=== PATIENT | female | born 1955 | race Caucasian/White ===

== ENCOUNTER → 2018-12-18 | Outpatient (CLI) | payer OTHER | LOC: YHH 14:00 ==

== ENCOUNTER 2019-03-17 09:27 | Inpatient (IN) | payer OTHER ==
[2019-03-17] MEDS ORDERED: methylPREDNISolone NA SUCC 125 MG/2 ML VIAL IVPUSH ONE (09:37)
[2019-03-17 09:41] VITALS: BMI 33.6
--- NOTE | 2019-03-17 09:50 | PDOC ---
History of Present Illness - General Chief Complaint: Allergic Reaction Stated Complaint: ALLERGIC RX Time Seen by Provider: 03/17/19 09:31 History Source: Patient Exam Limitations: No Limitations - History of Present Illness Initial Comments: 03/17/19 09:49 Bess Farias is a Malaysian-speaking 63F with PMH HIV, IDDM, alcohol and opiate use disorder sent from detox for facial swelling and stridor consistent with anaphylactic reaction. Per EMS, patient going into alcohol detox 2/2 large alcohol consumption yesterday, but today began having SOB with stridor/wheezing and facial swelling and rash on face and chest. Initial O2sat 90% on RA. Sent by detox to ED. EMS gave 0.3mg IV epi, IV Benadryl, 2x Combivent and wheezing has improved. Patient denies any history of allergies, denies new exposures to food, animals, or products. Facial swelling has occurred twice before, but patient is unable to recall when or to what this has happened with. Currently says she feels more normal now, but that her voice is different and has some trouble breathing still. Denies BARRAZA, N/V, chest pain, C/D, urinary symptoms, or abdominal pain. Past History - Past Medical History Allergies/Adverse Reactions: Allergies Allergy/AdvReac Type Severity Reaction Status Date / Time No Known Allergies Allergy Verified 03/17/19 09:32 Home Medications: Ambulatory Orders Famotidine [Pepcid -] 20 mg PO DAILY PRN #30 tablet 11/07/18 Albuterol 0.083% Nebulizer Mary [Ventolin 0.083% Nebulizer Soln -] 1 neb NEB Q6H PRN #120 vial 01/24/19 Albuterol Sulfate Inhaler - [Ventolin HFA Inhaler -] 1 - 2 inh PO Q6H PRN #1 inh 01/24/19 Aspirin [Aspirin EC] 81 mg PO DAILY #30 tablet. 01/24/19 Atorvastatin Ca [Lipitor] 10 mg PO HS #30 tablet 01/24/19 Bictegrav/Emtricit/Tenofov Ala [Biktarvy 50-200-25 mg Tablet] 1 each PO DAILY # 30 tablet 01/24/19 Fluticasone/Salmeterol [Advair 250-50 Diskus] 1 each IH BID #1 disk.w.dev Lisinopril [Zestril] 2.5 mg PO DAILY #30 tablet 01/24/19 Loratadine 10 mg PO DAILY #30 tablet 01/24/19 Multivitamin [Poly-Vitamin] 1 each PO DAILY #30 tab.chew 01/24/19 Sodium Chloride [Saline Nasal [place]] 1 - 2 sprays NS PRN #1 spray 01/24/19 Valacyclovir HCl [Valtrex -] 500 mg PO DAILY #30 tablet 01/24/19 Vitamin B Complex [B Complex] 1 each PO DAILY #30 tablet 01/24/19 metFORMIN HCL [Glucophage -] 500 mg PO BID #60 tablet 01/24/19 Nicotine Polacrilex [Nicotine Lozenge] 2 mg BC QID PRN #1 box 01/29/19 Terbinafine HCl [Lamisil At] 1 applic TP BID #30 cream..g. 01/29/19 Aripiprazole 15 mg PO AM #30 tablet 02/26/19 Benztropine Mesylate [Cogentin -] 1 mg PO DAILY #30 tablet 02/26/19 Mirtazapine 1 tablet PO HS 30 Days #30 tablet 02/26/19 Mirtazapine [Remeron -] 15 mg PO HS #30 tablet 02/26/19 Perphenazine [Trilafon -] 4 mg PO HS #30 tablet 02/26/19 Sertraline HCl 25 mg PO AM #30 tablet 02/26/19 Sertraline HCl 100 mg PO AM #30 tablet 02/26/19 Zolpidem Tartrate [Ambien] 10 mg PO HS #15 tablet MDD 1 02/26/19 Guaifenesin [Robitussin] 10 ml PO Q6H PRN #1 bottle MDD 4 03/07/19 Anemia: No Asthma: Yes Cancer: No Cardiac Disorders: No CVA: No COPD: Yes CHF: No Dementia: No Diabetes: Yes GI Disorders: No Disorders: No HTN: No Hypercholesterolemia: Yes Liver Disease: No Psychiatric Problems: Yes (Hx of treatment for major depressio, heroin abuse in remission.) Seizures: No Thyroid Disease: No - Surgical History Abdominal Surgery: No Appendectomy: No Cardiac Surgery: No Cholecystectomy: No Lung Surgery: No Neurologic Surgery: No Orthopedic Surgery: No - Immunization History Immunization Up to Date: (unknown) - Psycho Social/Smoking Cessation Hx Smoking History: Never smoked Have you smoked in the past 12 months: Yes Number of Cigarettes Smoked Daily: 10 Cigars Per Day: 0 Hx Alcohol Use: Yes Drug/Substance Use Hx: Yes Substance Use Type: Alcohol Hx Substance Use Treatment: Yes Review of Systems - Review of Systems Constitutional: No: Chills, Fever HEENTM: Yes: Throat Swelling, Mouth Swelling. No: Dental Problems, Difficulty Swallowing Respiratory: Yes: Stridor, Wheezing. No: Cough Cardiac (ROS): No: Symptoms Reported ABD/GI: No: Constipated, Diarrhea, Difficulty Swallowing, Nausea, Poor Appetite , Poor Fluid Intake, Vomiting : No: Symptoms Reported Musculoskeletal: No: Symptoms Reported Integumentary: Yes: Flushing, Rash (chest and face) Neurological: No: Symptoms reported Endocrine: No: Symptoms Reported Hematologic/Lymphatic: No: Symptoms Reported All Other Systems: Reviewed and Negative *Physical Exam - Vital Signs Last Vital Signs Temp Pulse Resp BP Pulse Ox 99.3 F 114 H 20 136/85 95 03/17/19 09:39 03/17/19 09:39 03/17/19 09:39 03/17/19 09:39 03/17/19 09:39 - Physical Exam General Appearance: Yes: Nourished, Appropriately Dressed, Mild Distress, Obese HEENT: positive: EOMI, ROBERT, Symmetrical, Hearing Grossly Normal, Other ( significant soft tissue swelling with erythema to face and neck, L > R, no creptitus). negative: Normal Voice, Pharynx Normal (Mallampati IV), Scleral Icterus (R), Scleral Icterus (L), Pharyngeal Erythema, Tonsillar Exudate, Tonsillar Erythema Neck: positive: Trachea midline, Normal Thyroid, Supple, Other (L > R soft tissue swelling). negative: Tender, Decreased range of motion, Lymphadenopathy (R), Lymphadenopathy (L), Thyromegaly Respiratory/Chest: positive: Stridor, Wheezing. negative: Chest Tender, Respiratory Distress, Accessory Muscle Use, Labored Respiration, Decreased Breath Sounds, Crackles, Rales, Rhonchi Cardiovascular: positive: Regular Rhythm, Tachycardia. negative: Murmur Gastrointestinal/Abdominal: positive: Normal Bowel Sounds, Soft, Protuberent. negative: Tender, Organomegaly, Pulsatile Mass, Guarding, Rebound Musculoskeletal: positive: Normal Inspection. negative: CVA Tenderness Extremity: positive: Normal Capillary Refill, Normal Inspection, Normal Range of Motion, Pelvis Stable. negative: Tender, Cyanosis, Erythema Integumentary: positive: Normal Color, Dry, Warm Neurologic: positive: Fully Oriented, Alert, Normal Mood/Affect, Normal Response. negative: Motor Strength 08/18 ED Treatment Course - LABORATORY CBC & Chemistry Diagram: 03/18/19 07:52 03/18/19 07:52 Medical Decision Making - Medical Decision Making 03/17/19 09:49 Bess Farias is a Malaysian-speaking 63F with PMH HIV, IDDM, alcohol and opiate use disorder sent from detox for facial swelling and stridor consistent with anaphylactic reaction. EMS already given epi, Duonebs, Benadryl. Ordering 125mg Solu-Medrol for presumed allergic reaction. Will continue to monitor swelling for improvement. Has good bilateral air flow with mild wheezing, no stridor noted. Ordering CBC, CMP, troponin, and CXR to further characterize etiology of facial swelling given unknown etiology. Ddx includes angioedema 2/2 mediation, Fco angina, SVC syndrome, dental infection. 03/17/19 10:57 ECG shows sinus tachycardia, HR 114, QRS 78, QTc 501, no evidence of TWI or ischemic changes. Labs notable for: - CBC WNL - CMP WNL Patient re-evaluated, neck and face still swollen but not any worse, says she is hungry. Given HIV+ and IDDM, concern for neck infection/cellulitis. Ordering CT neck/soft tissue with IV contrast to evaluate for this. Ordering 600mg IV clindamycin for presumed soft tissue infection. 03/17/19 14:55 CT shows no evidence of abscess or soft tissue infection, airway clear, but has enlarged lymph nodes especially in jugular chain. CXR shows prominent mediastinum but no sign of PTX or infiltrate. Patient is ambulatory and would like to go home, speaking without issue. Still has rash and facial swelling 4 hours after steroids, but is stable at this time , satting well on RA. However, patient has no idea what caused the reaction to begin with, likely has poor follow-up, and is a poor historian. Recommend keeping patient under observation overnight for further steroids until symptoms resolve. Discussed case with nina Keen for admission to her service to Med-Surg. Discharge - Discharge Information Problems reviewed: Yes Clinical Impression/Diagnosis: Facial swelling Allergic reaction Qualifiers: Encounter type: initial encounter Qualified Code(s): T78.40XA - Allergy, unspecified, initial encounter - Follow up/Referral - Patient Discharge Instructions - Post Discharge Activity
[2019-03-17] MEDS ORDERED: methylPREDNISolone NA SUCC 125 MG/2 ML VIAL ONE (09:57)
[2019-03-17 10:36] LABS: BASO % 0.9 % (0-2.0); EOS % 0.3 % (0-4.5); HEMATOCRIT 39.2 % (32.4-45.2); HEMOGLOBIN 12.5 GM/dL (10.7-15.3); LYMPH % 61.7 % (8-40); MCH 28.6 pg (25.7-33.7); MEAN CELL VOLUME 89.4 fl (80-96); MEAN PLT VOLUME 8.7 fl (7.5-11.1); MONO % 6.3 % (3.8-10.2); NEUT % 30.8 % (42.8-82.8); PLATELET COUNT 91 K/MM3 (134-434); RBC 4.38 M/mm3 (3.60-5.2); RDW 17.2 % (11.6-15.6); WHITE BLOOD COUNT 6.7 K/mm3 (4.0-10.0)
[2019-03-17] MEDS ORDERED: FAMOTIDINE 20 MG/50 ML IVPB 20 MG/50 ML MG IVPB ONE ×2 (10:56→11:29)
--- NOTE | 2019-03-17 10:58 | EKG ---
Test Reason : Blood Pressure : / mmHG Vent. Rate : 114 BPM Atrial Rate : 114 BPM P-R Int : 132 ms QRS Dur : 078 ms QT Int : 364 ms P-R-T Axes : 066 072 056 degrees QTc Int : 501 ms SINUS TACHYCARDIA OTHERWISE NORMAL ECG WHEN COMPARED WITH ECG OF 03-JAN-2018 10:18, NO SIGNIFICANT CHANGE WAS FOUND Confirmed by BRIEN MG MD ([id number]) on 03/17/2019 10:58:26 AM Referred By: Confirmed By:BRIEN MG MD
[2019-03-17] MEDS ORDERED: CLINDAMYCIN 600MG PREMIX IVPB 600 MG/50 ML BAG IVPB ONE ×2 (11:34→11:42)
[2019-03-17 12:19] LABS: ALBUMIN 3.5 g/dl (3.4-5.0); BILIRUBIN,TOTAL 0.3 mg/dL (0.2-1); BLOOD UREA NITROGEN 9.9 mg/dL (7-18); CREATININE 0.6 mg/dL (0.55-1.3); POTASSIUM 3.6 mmol/L (3.5-5.1)
[2019-03-17 14:53] LABS: ANISOCYTOSIS 1+; MACROCYTOSIS 1+; PLATELET ESTIMATE DECREASED; TARGET CELLS 1+
--- NOTE | 2019-03-17 14:57 | PDOC ---
Documentation entered by Bharat Terry SCRIBE, acting as scribe for Khanh Jimenez MD. Khanh Jimenez MD: This documentation has been prepared by the [facility] read Xhesika, SCRIBE, under my direction and personally reviewed by me in its entirety. I confirm that the documentation accurately reflects all work, treatment, procedures, and medical decision making performed by me. Attending Attestation - Resident Resident Name: AbdullahiparrishMorris - ED Attending Attestation I have performed the following: I have examined & evaluated the patient, The case was reviewed & discussed with the resident, I agree w/resident's findings & plan, Exceptions are as noted - HPI HPI: 03/17/19 11:10 The patient is a 63 year old female with a PMH of asthma, COPD, depression, HIV , IDDM, alcohol and opiate use disorder who presents to the ED for an allergic rxn. Pt notes she went to the methadone clinic this morning due to large alcohol consumption yesterday. While she was at the clinic, patient was having SOB, L eye, tongue and facial swelling. Pt did not receive her methadone. En route to the ED patient received IM epinephrine, IV benadryl, and Combivent x2 by EMS, with improvement of symptoms. Patient denies any history of allergies, or new exposures to food, animals, or products. The patient denies chest pain, headache and dizziness. Denies fever, chills, cough, nausea, vomiting, diarrhea and constipation. Allergies:, NKDA Social Hx: Denies current smoking, drinking, or other substance usage. - Physicial Exam PE: 03/17/19 11:42 Vitals: Triage Vital signs reviewed General Appearance: no acute distress, well nourished well developed, Face: +diffuse facial swelling Throat: + tongue swelling Cardiac: Regular rate and rhythm, no murmurs, no rubs, no gallops, Lungs: Clear to auscultation bilateral, good air movement bilaterally. No strider Skin: Warm and dry, no rashes or lesions, no petechiae Psych: normal mood, normal affect - Medical Decision Making 03/17/19 14:57 63 years old HIV diabetes with facial swelling hoarse voice some tongue swelling received steroids epinephrine in the field Pepcid and Benadryl CT demonstrates lymph node adenopathy but no acute evidence of infection Given risk factors will observe overnight for continued steroids monitoring and further management.
[2019-03-17] MEDS ORDERED: ACETAMINOPHEN 1000 MG/100 ML VIAL (NON FORMULARY) IVPB PRN (18:41)
--- NOTE | 2019-03-17 18:44 | HP ---
Admitting History and Physical - Primary Care Physician PCP: Marysol Du - Admission History of Present Illness: 63 year old female with a PMH of asthma, COPD, depression, HIV, IDDM, alcohol and opiate use disorder who presents to the ED for an allergic rxn. Pt notes she went to the methadone clinic this morning due to large alcohol consumption yesterday. While she was at the clinic, patient was having SOB, L eye, tongue and facial swelling. Pt did not receive her methadone. En route to the ED patient received IM epinephrine, IV benadryl, and Combivent x2 by EMS, with improvement of symptoms. Patient denies any history of allergies, or new exposures to food, animals, or products. - Past Medical History Pulmonary: Yes: Asthma, COPD Infectious Disease: Yes: HIV Endocrine: Yes: Diabetes Mellitus - Smoking History Smoking history: Never smoked Have you smoked in the past 12 months: Yes Aproximately how many cigarettes per day: 10 - Alcohol/Substance Use Hx Alcohol Use: Yes Home Medications - Allergies Allergies/Adverse Reactions: Allergies Allergy/AdvReac Type Severity Reaction Status Date / Time No Known Allergies Allergy Verified 03/17/19 09:32 - Home Medications Home Medications: Ambulatory Orders Famotidine [Pepcid -] 20 mg PO DAILY PRN #30 tablet 11/07/18 Albuterol 0.083% Nebulizer Mary [Ventolin 0.083% Nebulizer Soln -] 1 neb NEB Q6H PRN #120 vial 01/24/19 Albuterol Sulfate Inhaler - [Ventolin HFA Inhaler -] 1 - 2 inh PO Q6H PRN #1 inh 01/24/19 Aspirin [Aspirin EC] 81 mg PO DAILY #30 tablet.dr 01/24/19 Atorvastatin Ca [Lipitor] 10 mg PO HS #30 tablet 01/24/19 Bictegrav/Emtricit/Tenofov Ala [Biktarvy 50-200-25 mg Tablet] 1 each PO DAILY # 30 tablet 01/24/19 Fluticasone/Salmeterol [Advair 250-50 Diskus] 1 each IH BID #1 disk.w.dev Loratadine 10 mg PO DAILY #30 tablet 01/24/19 Multivitamin [Poly-Vitamin] 1 each PO DAILY #30 tab.chew 01/24/19 Sodium Chloride [Saline Nasal [place]] 1 - 2 sprays NS PRN #1 spray 01/24/19 Valacyclovir HCl [Valtrex -] 500 mg PO DAILY #30 tablet 01/24/19 Vitamin B Complex [B Complex] 1 each PO DAILY #30 tablet 01/24/19 metFORMIN HCL [Glucophage -] 500 mg PO BID #60 tablet 01/24/19 Nicotine Polacrilex [Nicotine Lozenge] 2 mg BC QID PRN #1 box 01/29/19 Terbinafine HCl [Lamisil At] 1 applic TP BID #30 cream..g. 01/29/19 Aripiprazole 15 mg PO AM #30 tablet 02/26/19 Benztropine Mesylate [Cogentin -] 1 mg PO DAILY #30 tablet 02/26/19 Mirtazapine 1 tablet PO HS 30 Days #30 tablet 02/26/19 Mirtazapine [Remeron -] 15 mg PO HS #30 tablet 02/26/19 Perphenazine [Trilafon -] 4 mg PO HS #30 tablet 02/26/19 Sertraline HCl 25 mg PO AM #30 tablet 02/26/19 Sertraline HCl 100 mg PO AM #30 tablet 02/26/19 Zolpidem Tartrate [Ambien] 10 mg PO HS #15 tablet MDD 1 02/26/19 Guaifenesin [Robitussin -] 10 ml PO Q6H PRN #1 bottle MDD 4 03/07/19 Physical Examination Vital Signs: Vital Signs Temperature 98.6 F 03/17/19 17:06 Pulse Rate 105 H 03/17/19 17:06 Respiratory Rate 12 03/17/19 17:06 Blood Pressure 139/71 03/17/19 17:06 O2 Sat by Pulse Oximetry (%) 97 03/17/19 17:24 HENT: Yes: Other (no more swelling of face) Cardiovascular: Yes: Regular Rate and Rhythm Respiratory: Yes: CTA Bilaterally Gastrointestinal: Yes: Normal Bowel Sounds Extremities: Yes: WNL Neurological: Yes: Alert, Oriented Labs: CBC, BMP 03/17/19 10:15 03/17/19 11:26 Imaging - Results Cat Scan: Report Reviewed Problem List - Problems (1) Allergic reaction Assessment/Plan: iv solumedrol benadryl po full liquid diet Code(s): T78.40XA - ALLERGY, UNSPECIFIED, INITIAL ENCOUNTER Qualifiers: Encounter type: initial encounter Qualified Code(s): T78.40XA - Allergy, unspecified, initial encounter (2) Facial swelling Code(s): R22.0 - LOCALIZED SWELLING, MASS AND LUMP, HEAD (3) Human immunodeficiency virus (HIV) disease Code(s): B20 - HUMAN IMMUNODEFICIENCY VIRUS [HIV] DISEASE (4) Anxiety Code(s): F41.9 - ANXIETY DISORDER, UNSPECIFIED Assessment/Plan Laboratory Tests 03/17/19 03/17/19 03/17/19 10:15 10:15 11:26 WBC 6.7 RBC 4.38 Hgb 12.5 Hct 39.2 MCV 89.4 MCH 28.6 MCHC 32.0 RDW 17.2 H Plt Count 91 L D MPV 8.7 D Absolute Neuts (auto) 2.1 Neutrophils % 30.8 L D Neutrophils % (Manual) 30.0 L Band Neutrophils % 1.1 Lymphocytes % 61.7 H D Lymphocytes % (Manual) 40.0 Monocytes % 6.3 Monocytes % (Manual) 7 Eosinophils % 0.3 Eosinophils % (Manual) 0.0 D Basophils % 0.9 Basophils % (Manual) 0.0 Myelocytes % (Man) 0 Promyelocytes % (Man) 0 Blast Cells % (Manual) 0 Nucleated RBC % 0 Metamyelocytes 0 Hypochromia 0 Platelet Estimate Decreased Polychromasia 0 Poikilocytosis 1+ Anisocytosis 1+ Microcytosis 1+ Macrocytosis 1+ Spherocytes 1+ Target Cells 1+ Sodium Cancelled 142 Potassium Cancelled 3.6 Chloride Cancelled 106 Carbon Dioxide Cancelled 26 Anion Gap Cancelled 11 BUN Cancelled 9.9 Creatinine Cancelled 0.6 Est GFR (CKD-EPI)AfAm Cancelled 114.02 Est GFR (CKD-EPI)NonAf Cancelled 98.38 Random Glucose Cancelled 91 Calcium Cancelled 8.0 L Total Bilirubin Cancelled 0.3 AST Cancelled 101 H ALT Cancelled 39 Alkaline Phosphatase Cancelled 73 Troponin I Cancelled Total Protein Cancelled 8.0 Albumin Cancelled 3.5 03/17/19 11:26 WBC RBC Hgb Hct MCV MCH MCHC RDW Plt Count MPV Absolute Neuts (auto) Neutrophils % Neutrophils % (Manual) Band Neutrophils % Lymphocytes % Lymphocytes % (Manual) Monocytes % Monocytes % (Manual) Eosinophils % Eosinophils % (Manual) Basophils % Basophils % (Manual) Myelocytes % (Man) Promyelocytes % (Man) Blast Cells % (Manual) Nucleated RBC % Metamyelocytes Hypochromia Platelet Estimate Polychromasia Poikilocytosis Anisocytosis Microcytosis Macrocytosis Spherocytes Target Cells Sodium Potassium Chloride Carbon Dioxide Anion Gap BUN Creatinine Est GFR (CKD-EPI)AfAm Est GFR (CKD-EPI)NonAf Random Glucose Calcium Total Bilirubin AST ALT Alkaline Phosphatase Troponin I < 0.02 Total Protein Albumin Active Medications Generic Name Dose Route Start Last Admin Trade Name Freq PRN Reason Stop Dose Admin Acetaminophen 1,000 mg 03/17/19 18:41 Ofirmev Injection - IVPB Q6H PRN PAIN LEVEL 4 - 6 Diphenhydramine HCl 25 mg 03/17/19 18:45 Benadryl - PO Q6H ROSA Methylprednisolone Sodium Succinate 60 mg 03/18/19 10:00 Solu-Medrol - IVPUSH DAILY ROSA Mirtazapine 30 mg 03/17/19 22:00 Remeron - PO HS ROSA
[2019-03-17] MEDS: diphenhydrAMINE HCL 25 MG CAPSULE (FP) PO SCH (19:10)
[2019-03-17] MEDS ORDERED: ZOLPIDEM TARTRATE 5 MG TABLET PO PRN (21:14)
[2019-03-17] MEDS ORDERED: MIRTAZAPINE 30 MG TABLET (FP) PO SCH (22:00)
[2019-03-18] MEDS: diphenhydrAMINE HCL 25 MG CAPSULE (FP) PO SCH ×3 (00:18→12:29)
[2019-03-18] MEDS ORDERED: metFORMIN HCL 500 MG TABLET (FP) PO SCH (07:00)
[2019-03-18 09:00] LABS: BASO % 0.5 % (0-2.0); EOS % 0.2 % (0-4.5); HEMATOCRIT 41.7 % (32.4-45.2); HEMOGLOBIN 13.4 GM/dL (10.7-15.3); LYMPH % 39.3 % (8-40); MCH 28.5 pg (25.7-33.7); MCHC 32.2 g/dl (32.0-36.0); MEAN CELL VOLUME 88.7 fl (80-96); MEAN PLT VOLUME 9.7 fl (7.5-11.1); MONO % 12.2 % (3.8-10.2); NEUT % 47.8 % (42.8-82.8); RDW 17.3 % (11.6-15.6)
[2019-03-18 09:05] LABS: WHITE BLOOD COUNT 7.4 K/mm3 (4.0-10.0)
[2019-03-18 09:30] LABS: ALBUMIN 3.5 g/dl (3.4-5.0); BILIRUBIN,TOTAL 0.8 mg/dL (0.2-1); CREATININE 0.8 mg/dL (0.55-1.3); POTASSIUM 4.5 mmol/L (3.5-5.1); TOT PROT 8.6 g/dl (6.4-8.2)
[2019-03-18] MEDS ORDERED: methylPREDNISolone NA SUCC 40 MG/1 ML VIAL IVPUSH SCH (10:00)
[2019-03-18] MEDS ORDERED: METHADONE HCL 40 MG DISPERSABLE TABLET PO ONE (10:15)
[2019-03-18] MEDS ORDERED: amLODIPine BESYLATE 5 MG TABLET (FP) PO ONE (12:13)
--- NOTE | 2019-03-18 12:14 | DS ---
Physical Examination Vital Signs: Vital Signs Temperature 99 F 03/18/19 05:00 Pulse Rate 83 03/18/19 10:58 Respiratory Rate 20 03/18/19 10:58 Blood Pressure 140/94 03/18/19 10:58 O2 Sat by Pulse Oximetry (%) 97 03/17/19 21:00 Constitutional: Yes: No Distress HENT: Yes: Atraumatic Neck: Yes: Supple Cardiovascular: Yes: Regular Rate and Rhythm Respiratory: Yes: CTA Bilaterally Gastrointestinal: Yes: Normal Bowel Sounds Extremities: Yes: WNL Edema: No Neurological: Yes: Alert, Oriented Labs: CBC, BMP 03/18/19 07:52 03/18/19 07:52 Discharge Summary Problems reviewed: Yes Reason For Visit: SWELLING OF FACE Current Active Problems Allergic reaction (Acute) Facial swelling (Acute) Weakness (Acute) Human immunodeficiency virus (HIV) disease (Chronic) Condition: Critical - Instructions Diet, Activity, Other Instructions: HOLD LISINOPRIL..COULD BE THE CAUSE FOR FACIAL SWELLING SEE YOUR DOCTOR FOR BP MANAGEMENT SEE ALLERGY AND IMMUNOLOGY Referrals: Jackie Lynch [employer]CTOR [Primary Care Provider] - Disposition: HOME - Home Medications Comprehensive Discharge Medication List: Ambulatory Orders Famotidine [Pepcid -] 20 mg PO DAILY PRN #30 tablet 11/07/18 Albuterol 0.083% Nebulizer Mary [Ventolin 0.083% Nebulizer Soln -] 1 neb NEB Q6H PRN #120 vial 01/24/19 Albuterol Sulfate Inhaler - [Ventolin HFA Inhaler -] 1 - 2 inh PO Q6H PRN #1 inh 01/24/19 Aspirin [Aspirin EC] 81 mg PO DAILY #30 tablet.dr 01/24/19 Atorvastatin Ca [Lipitor] 10 mg PO HS #30 tablet 01/24/19 Bictegrav/Emtricit/Tenofov Ala [Biktarvy 50-200-25 mg Tablet] 1 each PO DAILY # 30 tablet 01/24/19 Fluticasone/Salmeterol [Advair 250-50 Diskus] 1 each IH BID #1 disk.w.dev Loratadine 10 mg PO DAILY #30 tablet 01/24/19 Multivitamin [Poly-Vitamin] 1 each PO DAILY #30 tab.chew 01/24/19 Sodium Chloride [Saline Nasal [place]] 1 - 2 sprays NS PRN #1 spray 01/24/19 Valacyclovir HCl [Valtrex -] 500 mg PO DAILY #30 tablet 01/24/19 Vitamin B Complex [B Complex] 1 each PO DAILY #30 tablet 01/24/19 metFORMIN HCL [Glucophage -] 500 mg PO BID #60 tablet 01/24/19 Nicotine Polacrilex [Nicotine Lozenge] 2 mg BC QID PRN #1 box 01/29/19 Terbinafine HCl [Lamisil At] 1 applic TP BID #30 cream..g. 01/29/19 Aripiprazole 15 mg PO AM #30 tablet 02/26/19 Benztropine Mesylate [Cogentin -] 1 mg PO DAILY #30 tablet 02/26/19 Mirtazapine 1 tablet PO HS 30 Days #30 tablet 02/26/19 Mirtazapine [Remeron -] 15 mg PO HS #30 tablet 02/26/19 Perphenazine [Trilafon -] 4 mg PO HS #30 tablet 02/26/19 Sertraline HCl 25 mg PO AM #30 tablet 02/26/19 Sertraline HCl 100 mg PO AM #30 tablet 02/26/19 Zolpidem Tartrate [Ambien] 10 mg PO HS #15 tablet MDD 1 02/26/19 Guaifenesin [Robitussin -] 10 ml PO Q6H PRN #1 bottle MDD 4 03/07/19 [facility]
[2019-03-18 12:55] LABS: PLATELET COUNT 58 K/MM3 (134-434)
[2019-03-18 14:21] VITALS: BP 153/92; PULSE 96; TEMP 99.1
== END 2019-03-18 15:22 | disposition home or self-care (01) | DRG 385 ==
LOC: JER 09:27 → JERBED 16:22 → J5S 17:40
PROVIDERS: ADMIT Internal Medicine; ATTEND Internal Medicine
DX: R22.0 Localized swelling, mass and lump, head (principal); Z21 Asymptomatic human immunodeficiency virus [HIV] infection status; F11.99 Opioid use, unspecified with unspecified opioid-induced disorder; R00.0 Tachycardia, unspecified; R21 Rash and other nonspecific skin eruption; R22.1 Localized swelling, mass and lump, neck; R06.2 Wheezing; E11.9 Type 2 diabetes mellitus without complications; R06.1 Stridor; J44.9 Chronic obstructive pulmonary disease, unspecified
CPT/HCPCS: 36415; 70491-TC; 71045-TC-FY; 80053; 82962; 84484; 85025; 93005; 93010; 99285-25; G0463-25; Q9967

== ENCOUNTER 2019-06-19 12:55 | Inpatient (IN) | payer OTHER ==
[2019-06-19 13:05] VITALS: BMI 33.8
--- NOTE | 2019-06-19 13:08 | PDOC ---
History of Present Illness - General Chief Complaint: Weakness Stated Complaint: LEG PAIN Time Seen by Provider: 06/19/19 13:06 History Source: Patient Exam Limitations: Clinical Condition, Intoxication - History of Present Illness Initial Comments: Bess Farias is a 63 yo F w a pmh of HIV last known CD4 - 438 on 05/05, IDDM, asthma, COPD, depression, alcohol and opiate use disorder on methadone presents to the [facility] er BIBEMS because she had a throbbing/pulasting pain in the right side of her neck associated with right foot pain. When EMS arrived at the patient's home she was noted to be saturating in the high 70's and low 80's however she perked up to high 80's low 90's on 5L NC. Here in the ER the patient does not provide much history. She states that she has mild right sided neck pain, her legs are in pain, and she overall feels lousy but does not provide specific symptoms. She endorses shortness of breath and a significant amount of difficulty lying flat. She also endorses a significant amount of new onset diffuse bilateral leg swelling. Denies abdominal pain, nausea, vomiting, headache, blurry vision, recent travel, fevers, or arm weakness. PCP: Jackie Lynch PSH: None reported Social Hx: Smokes 1 PPD. Abuses alcohol and opiates. Lives at home and is independent in her ADL. Allergies: Lisinopril. Past History - Past Medical History Allergies/Adverse Reactions: Allergies Allergy/AdvReac Type Severity Reaction Status Date / Time lisinopril Allergy Swelling Verified 06/19/19 13:01 Home Medications: Ambulatory Orders Albuterol Sulfate Inhaler - [Ventolin HFA Inhaler -] 1 - 2 inh PO Q6H PRN #1 inh 01/24/19 Aspirin [Aspirin EC] 81 mg PO DAILY #30 tablet.dr 01/24/19 Atorvastatin Ca [Lipitor] 10 mg PO HS #30 tablet 01/24/19 Fluticasone/Salmeterol [Advair 250-50 Diskus] 1 each IH BID #1 disk.w.dev 01/24/19 Loratadine 10 mg PO DAILY #30 tablet 01/24/19 Multivitamin [Poly-Vitamin] 1 each PO DAILY #30 tab.chew 01/24/19 Sodium Chloride [Saline Nasal [place]] 1 - 2 sprays NS PRN #1 spray 10/11/19 Vitamin B Complex [B Complex] 1 each PO DAILY #30 tablet 01/24/19 metFORMIN HCL [Glucophage -] 500 mg PO BID #60 tablet 01/24/19 Terbinafine HCl [Lamisil At] 1 applic TP BID #30 cream..g. 01/29/19 Blood Pressure Kit-Extra Large [Blood Pressure Monitor] 1 each ASDIR #1 kit 03/19/19 Nebulizer [Compact Compressor Nebulizer] 1 each ASDIR #1 kit 03/19/19 Amlodipine Besylate [Norvasc -] 1 tab PO DAILY #30 tablet 05/01/19 Aripiprazole 15 mg PO AM #30 tablet 05/07/19 Benztropine Mesylate [Cogentin -] 1 mg PO DAILY #30 tablet 05/07/19 Hydrochlorothiazide [Hctz -] 12.5 mg PO DAILY #30 cap 05/07/19 Mirtazapine 1 tablet PO HS 30 Days #30 tablet 05/07/19 Mirtazapine [Remeron -] 15 mg PO HS #30 tablet 05/07/19 Nicotine Polacrilex [Nicotine Gum] 2 mg ASDIR #1 box 05/07/19 Perphenazine [Trilafon -] 4 mg PO HS #30 tablet 05/07/19 Sertraline HCl 25 mg PO AM #30 tablet 05/07/19 Sertraline HCl 100 mg PO AM #30 tablet 05/07/19 Albuterol 0.083% Nebulizer Mary [Ventolin 0.083% Nebulizer Soln -] 1 neb NEB Q6H PRN #120 vial 05/27/19 Bictegrav/Emtricit/Tenofov Ala [Biktarvy 50-200-25 mg Tablet] 1 each PO DAILY #30 tablet 05/27/19 Famotidine [Pepcid -] 20 mg PO DAILY PRN #30 tablet 05/27/19 Valacyclovir HCl [Valtrex -] 500 mg PO DAILY #30 tablet 05/27/19 Zolpidem Tartrate [Ambien] 10 mg PO HS #15 tablet MDD 1 06/05/19 Anemia: No Asthma: Yes Cancer: No Cardiac Disorders: No CVA: No COPD: Yes CHF: No Dementia: No Diabetes: Yes GI Disorders: No Disorders: No HTN: No Hypercholesterolemia: Yes Liver Disease: No Psychiatric Problems: Yes (Hx of treatment for major depressio, heroin abuse in remission.) Seizures: No Thyroid Disease: No - Surgical History Abdominal Surgery: No Appendectomy: No Cardiac Surgery: No Cholecystectomy: No Lung Surgery: No Neurologic Surgery: No Orthopedic Surgery: No - Immunization History Immunization Up to Date: (unknown) - Psycho Social/Smoking Cessation Hx Smoking History: Current every day smoker Have you smoked in the past 12 months: Yes Number of Cigarettes Smoked Daily: 15 Cigars Per Day: 0 Information on smoking cessation initiated: No 'Breaking Loose' booklet given: 03/17/19 Hx Alcohol Use: Yes Drug/Substance Use Hx: Yes Substance Use Type: Alcohol Hx Substance Use Treatment: Yes Review of Systems - Review of Systems Able to Perform ROS?: Yes Comments:: CONSTITUTIONAL: Present: Fatigue Absent: fever, no chills EYES: Absent: visual changes ENT: Absent: ear pain, no sore throat CARDIOVASCULAR: Present: Chest pain Absent: no palpitations RESPIRATORY: Present: Cough, SOB GI: Absent: abdominal pain, no nausea, no vomiting, no constipation, no diarrhea GENITOURINARY: Absent: dysuria, no frequency, no hematuria MUSKULOSKELETAL: Present: Myalgia Absent: back pain, no arthralgia SKIN: Absent: rash NEURO: Absent: headache *Physical Exam - Vital Signs Last Vital Signs Temp Pulse Resp BP Pulse Ox 98.5 F 103 H 16 124/72 94 L 06/19/19 13:02 06/19/19 13:02 06/19/19 13:02 06/19/19 13:02 06/19/19 13:02 - Physical Exam GENERAL: Appears intoxicated, has a strong scent of alcohol and cigarettes, looks unwell. Mild distress. HEENT: Normocephalic, atraumatic. PERRL, EOM intact. CARDIOVASCULAR: Tachycardic rate. Crescendo/decresendo systolic murmer in aortic region. Regular rhythm. PULMONARY: There are bilateral rales midway up both lung benson. Moderate evidence of respiratory distress. No wheezing or rhonchi. ABDOMEN: Soft, non-distended, non-tender. EXTREMITIES: There is 2+ edema in both lower legs. Normal ROM in upper extremities, decreased ROM in lower extremities. No gross deformities. SKIN: Warm, dry. No rash NEUROLOGICAL: No focal neurological deficits. ED Treatment Course - LABORATORY CBC & Chemistry Diagram: 06/19/19 13:33 06/19/19 13:33 Medical Decision Making - Medical Decision Making Bess Farias is a 63 yo F w a pmh of HIV last known CD4 - 438 on 05/05, IDDM, asthma, COPD, depression, alcohol and opiate use disorder on methadone presents to the [facility] er BIBEMS because she had a throbbing/pulasting pain in the right side of her neck associated with right foot pain. When EMS arrived at the patient's home she was noted to be saturating in the high 70's and low 80's however she perked up to high 80's low 90's on 5L NC. Here in the ER the patient does not provide much history. She states that she has mild right sided neck pain, her legs are in pain, and she overall feels lousy but does not provide specific symptoms. She endorses shortness of breath and a significant amount of difficulty lying flat. She also endorses a significant amount of new onset diffuse bilateral leg swelling. Vital Signs Temp Pulse Resp BP Pulse Ox 98.5 F 103 H 16 124/72 94 L 06/19/19 13:02 06/19/19 13:02 06/19/19 13:02 06/19/19 13:02 06/19/19 13:02 DDx IBNLT: Sepsis, opportunistic infection, PCP, Heart failure, COPD, electrolyte/metabolic disturbance, anemia Plan: POCUS Chest, Labs, urine, EKG, CXR, BiPap, supportive care, admission to [facility]. - ECHO done in 2017 with normal LV function POCUS: done by me at bedside with US team Heart: There is global wall motion hypokinesis. EPSS 1.13 consistent with decreased EF less than 50%. No focal wall motion abnormality. no pericardial effusion. RV appears mildly enlarged but is still less than the LV. Lungs: There are b/l B-lines in both lung benson. No pleural effusions. Normal A-lines and lung sliding b/l. IVC: plethoric and plump, very large, essentially no variation with respiration. Patient appears to be overloaded. Labs: Elevated BNP, and mildly elevated LDH EKG: NS rate of 97, narrow complexes, normal axis, no hypertrophy, no ST elevations or depressions, QTc 403, HI 164 Urine: Unremarkable Re-assessment: Patient saturating better on BiPap Disposition: Tele admission for new onset heart failure Discharge - Discharge Information Problems reviewed: Yes Clinical Impression/Diagnosis: Heart failure Qualifiers: Heart failure type: unspecified Heart failure chronicity: unspecified Qualified Code(s): I50.9 - Heart failure, unspecified Condition: Fair - Admission Yes - Follow up/Referral Referrals: Jackie Lynch [employer] [Primary Care Provider] - - Patient Discharge Instructions - Post Discharge Activity
[2019-06-19] MEDS ORDERED: FUROSEMIDE 40 MG/4 ML INJECTABLE VIAL IVPUSH ONE (13:24)
[2019-06-19] MEDS ORDERED: ACETAMINOPHEN 1000 MG/100 ML VIAL (NON FORMULARY) IVPB ONE ×2 (13:25→23:35)
--- NOTE | 2019-06-19 13:28 | PDOC ---
Attending Attestation - Resident Resident Name: AnnykishanJamie - ED Attending Attestation I have performed the following: I have examined & evaluated the patient, The case was reviewed & discussed with the resident, I agree w/resident's findings & plan, Exceptions are as noted - HPI HPI: 06/19/19 13:27 63y F hx of HIV (noncompliant with meds the past few weeks), iddm, asthma, copd, polysubstance abuse presents with complaint of not feeling well. Patient states she is feeling okay the last several days And even when she woke up however approximately 2 Hours ago patient started to feel mild shortness of breath Without associated chest pain, shortness of breath, Nausea, vomiting, diaphoresis, back pain, lower extremity swelling, fever, chills, Abdominal pain, Dysuria, diarrhea. Patient seems to be a poor And inconsistent historian. Upon arrival the patient was noted to be hypoxic to the 80s/90s Patient had scattered rales bilaterally Trace pitting edema Differential for the patient's symptoms includes possible anemia, metabolic derangements, Pneumonia, COPD exacerbation, ACS Will obtain blood work, chest x-ray, EKG - Physicial Exam PE: 06/19/19 15:50 GENERAL: The patient is awake, alert, and fully oriented, Nontoxic - in no acute distress. HEAD: Normocephalic, atraumatic. EYES: extraocular movements intact, sclera anicteric, conjunctiva clear. ENT: Normal voice, Moist mucous membranes. NECK: Normal range of motion, supple LUNGS: scant rales at bases, no acute respiratoory distress HEART: Regular rate and rhythm, normal S1 and S2 without murmur, rub or gallop. ABDOMEN: Soft, nontender, No guarding, no rebound. No CVA tenderness EXTREMITIES: Normal range of motion, trace edema. NEUROLOGICAL: No facial assymetry, Normal speech, moving all 4 extremities spontaneously and symmetrically PSYCH: Normal mood, normal affect. SKIN: Warm, Dry, normal turgor, - Medical Decision Making 06/19/19 15:51 ddx includes chf, pna, cardiac disease, emtabolic derangement, copd pts labs reviewed pts respiratory status improved with bipap cxr w/o infiltarate/ptx will admit forfurther mgmt of chf Heart Score/ECG Review - ECG Impressions Comment:: 06/19/19 14:06 Twelve-lead EKG was performed and reviewed by me. There is normal sinus rhythm with a normal rate. Rate of 97 The axis is normal. The intervals are normal. There is normal R wave progression There are no ST or T wave abnormalities. Impression: Normal twelve-lead EKG
[2019-06-19] MEDS ORDERED: ACETAMINOPHEN INJECTION 100 ML IVPB ONE (13:55)
[2019-06-19] MEDS ORDERED: FUROSEMIDE 40 MG/4 ML INJECTABLE VIAL ONE (13:56)
[2019-06-19 14:02] LABS: VENOUS PC02 52.1 mmHg (38-52); VENOUS PH 7.34 (7.31-7.41); VENOUS PO2 86.9 mmHg (28-48)
[2019-06-19 14:07] LABS: BASO % 1.1 % (0-2.0); EOS % 0.2 % (0-4.5); HEMATOCRIT 40.7 % (32.4-45.2); HEMOGLOBIN 12.8 GM/dL (10.7-15.3); LYMPH % 46.1 % (8-40); MCH 27.7 pg (25.7-33.7); MCHC 31.5 g/dl (32.0-36.0); MEAN CELL VOLUME 88.1 fl (80-96); MEAN PLT VOLUME 9.1 fl (7.5-11.1); MONO % 7.2 % (3.8-10.2); NEUT % 45.4 % (42.8-82.8); RBC 4.62 M/mm3 (3.60-5.2); RDW 15.9 % (11.6-15.6); WHITE BLOOD COUNT 9.1 K/mm3 (4.0-10.0)
[2019-06-19 14:37] LABS: PLATELET ESTIMATE SLT DECREASE
[2019-06-19 14:44] LABS: LDH 294 U/L (84-246)
[2019-06-19 14:57] LABS: ALBUMIN 3.4 g/dl (3.4-5.0); BILIRUBIN,TOTAL 0.4 mg/dL (0.2-1); CALCIUM 8.8 mg/dL (8.5-10.1); CREATININE 0.6 mg/dL (0.55-1.3); POTASSIUM 4.2 mmol/L (3.5-5.1); TOT PROT 7.8 g/dl (6.4-8.2)
[2019-06-19 15:14] LABS: URINE APPEARANCE CLEAR; URINE BILIRUBIN NEGATIVE (NEGATIVE); URINE COLOR YELLOW; URINE GLUCOSE (UA) NEGATIVE (NEGATIVE); URINE KETONE NEGATIVE (NEGATIVE); URINE LEUK ESTERASE NEGATIVE (NEGATIVE); URINE NITRITE NEGATIVE (NEGATIVE); URINE PROTEIN NEGATIVE (NEGATIVE); URINE UROBILINOGEN 0.2 mg/dL (0.2-1.0)
[2019-06-19 15:14] LABS: INR 1.17 (0.83-1.09); PROTHROMBIN TIME (PATIENT) 13.8 SEC (9.7-13.0)
[2019-06-19 15:16] LABS: ACTIVATED PTT 31.3 SECONDS (25.2-36.5)
[2019-06-19] MEDS ORDERED: ALBUTEROL SO4 2.5/IPRATROPIUM 0.5 INH SOL 3 ML VIAL.NEB. NEB PRN ×2 (16:25→20:03)
[2019-06-19] MEDS ORDERED: ATORVASTATIN CA 10 MG TABLET (FP) PO ONE (16:26)
[2019-06-19] MEDS ORDERED: FOLIC ACID 1 MG TABLET (FP) PO ONE (16:28)
[2019-06-19] MEDS ORDERED: ARIPiprazole 15 MG TABLET PO ONE (16:29)
[2019-06-19] MEDS ORDERED: NICOTINE POLACRILEX 2 MG GUM BUC PRN (16:30)
[2019-06-19] MEDS ORDERED: SERTRALINE HCL 50 MG TABLET (FP) PO ONE (16:31)
[2019-06-19] MEDS ORDERED: MAGNESIUM SULF 50% (8.12 MEQ/2 ML-1 GM VIAL) IVPB ONE (16:32)
[2019-06-19] MEDS ORDERED: FOLIC ACID 1 MG TABLET (FP) ONE (16:41)
[2019-06-19] MEDS ORDERED: ATORVASTATIN CA 10 MG TABLET (FP) ONE (16:41)
[2019-06-19] MEDS ORDERED: SERTRALINE HCL 50 MG TABLET (FP) ONE (16:41)
[2019-06-19] MEDS ORDERED: ARIPiprazole 5 MG TABLET ONE (16:41)
[2019-06-19] MEDS ORDERED: MAGNESIUM 1GM/D5W - 1 GM/100 ML IVPB IVPB ONE (16:42)
[2019-06-19] MEDS: MIRTAZAPINE 15 MG TABLET (FP) PO SCH (22:13)
[2019-06-19] MEDS: ZOLPIDEM TARTRATE 5 MG TABLET PO PRN (22:13)
[2019-06-19] MEDS: FLUTICASONE/SALMETEROL 100 MCG/50 MCG DISKUS IH SCH (22:13)
[2019-06-19] MEDS: PERPHENAZINE 4 MG TABLET PO SCH (22:13)
--- NOTE | 2019-06-20 09:52 | CON.CARD ---
Consult Consult Specialty:: Cardiology Referred by:: Dr. Ty Reason for Consultation:: Shortness of breath - History of Present Illness Chief Complaint: Short of breath and LE edema History of Present Illness: 63y F hx of HIV (noncompliant with meds the past few weeks), iddm, asthma, copd, polysubstance abuse presents with complaint of not feeling well. Patient states she is feeling okay the last several days And even when she woke up however approximately 2 Hours ago patient started to feel mild shortness of breath Wit hout associated chest pain, shortness of breath, Nausea, vomiting, diaphoresis, back pain, lower extremity swelling, fever, chills, Abdominal pain, Dysuria, diarrhea. Patient seems to be a poor And inconsistent historian. Upon arrival the patient was noted to be hypoxic to the 80s/90s Patient had scattered rales bilaterally Trace pitting edema - History Source History Provided By: Patient, Medical Record - Past Medical History Pulmonary: Yes: Asthma, COPD Gastrointestinal: No: Ascites, Cancer, Constipation, Crohn's Disease, Diverticulitis, Diverticulosis, Esophageal Varices, Gastritis, GERD, GI Bleed, Hemorrhoids, Hiatal Hernia, Inflamatory Bowel Disease, Irritable Bowel Disease, Pancreatitis, Peptic Ulcer Disease, Ulcerative Colitis, Other Hepatobiliary: No: Cirrhosis, Cholelithiasis, Cholecystitis, Choledocholithiasis, Hepatitis A, Hepatitis B, Hepatitis C, Other Renal/: No: Renal Failure, Renal Inusuff, BPH, Cancer, Hematuria, Hemodialysis, Neurogenic Bladder, Renal Calculi, UTI, Other ...: No Infectious Disease: Yes: HIV Endocrine: Yes: Diabetes Mellitus - Alcohol/Substance Use Hx Alcohol Use: Yes - Smoking History Smoking history: Current every day smoker Have you smoked in the past 12 months: Yes Aproximately how many cigarettes per day: 20 - Social History History of Recent Travel: No Home Medications - Allergies Allergies/Adverse Reactions: Allergies Allergy/AdvReac Type Severity Reaction Status Date / Time lisinopril Allergy Swelling Verified 06/19/19 13:01 - Home Medications Home Medications: Ambulatory Orders Albuterol Sulfate Inhaler - [Ventolin HFA Inhaler -] 1 - 2 inh PO Q6H PRN #1 inh 01/24/19 Aspirin [Aspirin EC] 81 mg PO DAILY #30 tablet. 01/24/19 Atorvastatin Ca [Lipitor] 10 mg PO HS #30 tablet 01/24/19 Fluticasone/Salmeterol [Advair 250-50 Diskus] 1 each IH BID #1 disk.w.dev 01/24/19 Loratadine 10 mg PO DAILY #30 tablet 01/24/19 Multivitamin [Poly-Vitamin] 1 each PO DAILY #30 tab.chew 01/24/19 Sodium Chloride [Saline Nasal [place]] 1 - 2 sprays NS PRN #1 spray 01/24/19 Vitamin B Complex [B Complex] 1 each PO DAILY #30 tablet 01/24/19 metFORMIN HCL [Glucophage -] 500 mg PO BID #60 tablet 01/24/19 Terbinafine HCl [Lamisil At] 1 applic TP BID #30 cream..g. 01/29/19 Blood Pressure Kit-Extra Large [Blood Pressure Monitor] 1 each ASDIR #1 kit 03/19/19 Nebulizer [Compact Compressor Nebulizer] 1 each ASDIR #1 kit 03/19/19 Amlodipine Besylate [Norvasc -] 1 tab PO DAILY #30 tablet 05/01/19 Aripiprazole 15 mg PO AM #30 tablet 05/07/19 Benztropine Mesylate [Cogentin -] 1 mg PO DAILY #30 tablet 05/07/19 Hydrochlorothiazide [Hctz -] 12.5 mg PO DAILY #30 cap 05/07/19 Mirtazapine 1 tablet PO HS 30 Days #30 tablet 05/07/19 Mirtazapine [Remeron -] 15 mg PO HS #30 tablet 05/07/19 Nicotine Polacrilex [Nicotine Gum] 2 mg ASDIR #1 box 05/07/19 Perphenazine [Trilafon -] 4 mg PO HS #30 tablet 05/07/19 Sertraline HCl 25 mg PO AM #30 tablet 05/07/19 Sertraline HCl 100 mg PO AM #30 tablet 05/07/19 Albuterol 0.083% Nebulizer Mary [Ventolin 0.083% Nebulizer Soln -] 1 neb NEB Q6H PRN #120 vial 05/27/19 Bictegrav/Emtricit/Tenofov Ala [Biktarvy 50-200-25 mg Tablet] 1 each PO DAILY #30 tablet 05/27/19 Famotidine [Pepcid -] 20 mg PO DAILY PRN #30 tablet 05/27/19 Valacyclovir HCl [Valtrex -] 500 mg PO DAILY #30 tablet 05/27/19 Zolpidem Tartrate [Ambien] 10 mg PO HS #15 tablet MDD 1 06/05/19 Family Medical History Family History: Unremarkable Review of Systems Findings/Remarks: Increased LE edema, SOB - Review of Systems Eyes: reports: No Symptoms HENT: reports: No Symptoms Neck: reports: No Symptoms Cardiovascular: reports: Edema, Shortness of Breath Respiratory: reports: Exercise Intolerance Gastrointestinal: reports: No Symptoms Genitourinary: reports: No Symptoms Breasts: reports: No Symptoms Reported Musculoskeletal: reports: No Symptoms Integumentary: reports: No Symptoms Neurological: reports: No Symptoms Endocrine: reports: No Symptoms Hematology/Lymphatic: reports: No Symptoms Psychiatric: reports: No Symptoms - Risk Factors Known Risk Factors: Yes: Diabetes Mellitus, Smoking, Other (HIV) Vital Signs: Vital Signs Temperature 98.1 F 06/20/19 06:00 Pulse Rate 105 H 06/20/19 06:00 Respiratory Rate 19 06/20/19 06:00 Blood Pressure 149/81 06/20/19 06:00 O2 Sat by Pulse Oximetry (%) 96 06/20/19 08:31 Constitutional: Yes: No Distress, Calm Eyes: Yes: Conjunctiva Clear Neck: Yes: Trachea Midline Respiratory: Yes: Other (decreased breath sounds bilaterally, no active wheezing) Gastrointestinal: Yes: Soft JVD: No Carotid Bruit: No Heart Sounds: Yes: S1, S2 (LOUD SYSTOLIC MURMUR) Murmur: Yes: Systolic Murmur Edema: Yes Edema: LLE: 1+, RLE: 1+ Neurological: Yes: Alert, Oriented ...Motor Strength: WNL - Other Data Labs, Other Data: CBC, BMP 06/19/19 13:33 INR, PTT INR 1.17 (0.83-1.09) H 06/19/19 13:33 Troponin, BNP 06/19/19 06/19/19 13:33 13:33 Troponin I < 0.02 B-Natriuretic Peptide 371.7 H Troponin, BNP 06/19/19 06/19/19 13:33 13:33 Troponin I < 0.02 B-Natriuretic Peptide 371.7 H Echo: Pending Imaging - Results Chest X-ray: Image Reviewed (increased PVC (my read)) EKG: Image Reviewed (NSR 97bpm, no acute ST changes)) Assessment/Plan IMP: Mild acute CHF (systolic vs diastolic) DM Smoker ETOH abuse HIV REC: 1. CHF: -Serial enzymes -Echo pending -Lasix 40mg IV daily -Daily weights, BMP follow renal fx -consider ischemic evaluation when euvolemic. If reliable f/u, could be done as outpatient. 2. DM: -As per PMD 3. Smoker: -Complete cessation advised 4. Etoh abuse: -would offer rehab 5. HIV: -Places her at increased risk of CAD and cardiomyopathy -Echo -Meds as per PMD
[2019-06-20] MEDS ORDERED: HYDROCHLOROTHIAZIDE 12.5 MG CAPSULE (FP) PO SCH (10:00)
[2019-06-20] MEDS ORDERED: FUROSEMIDE 40 MG/4 ML INJECTABLE VIAL IVPUSH SCH (10:15)
[2019-06-20] MEDS: LORATADINE 10 MG TABLET PO SCH (11:07)
[2019-06-20] MEDS: FAMOTIDINE 20 MG TABLET PO SCH (11:07)
[2019-06-20] MEDS: ASPIRIN 81 MG CHEWABLE TABLETS PO SCH (11:07)
[2019-06-20] MEDS: BICTEGRAV/EMTRICIT/TENOFOV (BIKTARVY) 50-200-25 MG TABLET PO SCH (11:07)
[2019-06-20] MEDS: FLUTICASONE/SALMETEROL 100 MCG/50 MCG DISKUS IH SCH ×2 (11:07→21:13)
[2019-06-20] MEDS: THIAMINE HCL 100 MG TABLET (FP) PO SCH (11:08)
[2019-06-20] MEDS: MULTIVITAMINS (DAILY MVI) TABLET (FP) PO SCH (11:08)
[2019-06-20] MEDS ORDERED: SODIUM CHLORIDE 0.9% 500 ML INFUS.BAG IV ONE ×2 (11:18→20:11)
[2019-06-20] MEDS ORDERED: METHADONE HCL 40 MG DISPERSABLE TABLET PO ONE (11:30)
--- NOTE | 2019-06-20 11:36 | EKG ---
Test Reason : Blood Pressure : / mmHG Vent. Rate : 097 BPM Atrial Rate : 097 BPM P-R Int : 164 ms QRS Dur : 078 ms QT Int : 318 ms P-R-T Axes : 046 077 031 degrees QTc Int : 403 ms NORMAL SINUS RHYTHM NONSPECIFIC ST ABNORMALITY WHEN COMPARED WITH ECG OF 17-MAR-2019 09:47, T WAVE AMPLITUDE HAS DECREASED IN ANTERIOR LEADS T WAVE INVERSION NO LONGER EVIDENT IN LATERAL LEADS Confirmed by MYA SCHAFFER MD ([id number]) on 06/20/2019 11:36:43 AM Referred By: Confirmed By:MYA SCHAFFER MD
[2019-06-20] MEDS: amLODIPine BESYLATE 10 MG TABLET (FP) PO SCH (11:39)
--- NOTE | 2019-06-20 12:04 | PN ---
Progress Note (short form) - Note Progress Note: PULMONARY CONSULTATION DICTATED 06/20/19 IMP ACUTE HYPOXEMIC/HYPOXEMIC RESPIRATORY FAILURE LIKELY ACUTE CHF H/O ASTHMA HIV POLYSUBSTANCE ABUSE TOBACCO ABUSE IDDM ELEVATED LACTATE LEVEL PLAN LASIX SUPPLEMENTAL O2 INHALED BRONCHODILATORS DAILY WTS ECHO TREND LACTATE MONITOR BLOOD SUGARS ABG AMBULATORY OE SAT ON RA PRIOR TO DISCHARGE SMOKING CESSATION COUNSELED DR JETT Problem List - Problems (1) Acute respiratory failure with hypoxia and hypercapnia Code(s): J96.01 - ACUTE RESPIRATORY FAILURE WITH HYPOXIA; J96.02 - ACUTE RESPIRATORY FAILURE WITH HYPERCAPNIA (2) Chest tightness Code(s): R07.89 - OTHER CHEST PAIN (3) Asthma Code(s): J45.909 - UNSPECIFIED ASTHMA, UNCOMPLICATED (4) COPD (chronic obstructive pulmonary disease) Code(s): J44.9 - CHRONIC OBSTRUCTIVE PULMONARY DISEASE, UNSPECIFIED (5) Type II diabetes mellitus Code(s): E11.9 - TYPE 2 DIABETES MELLITUS WITHOUT COMPLICATIONS (6) Tobacco abuse Code(s): Z72.0 - TOBACCO USE (7) Tobacco abuse counseling Code(s): Z71.6 - TOBACCO ABUSE COUNSELING (8) HIV (human immunodeficiency virus infection) Code(s): B20 - HUMAN IMMUNODEFICIENCY VIRUS [HIV] DISEASE (9) Acute CHF Code(s): I50.9 - HEART FAILURE, UNSPECIFIED
--- NOTE | 2019-06-20 14:12 | CONS ---
DATE OF CONSULTATION: 06/20/2019 PULMONARY CONSULTATION REFERRING PHYSICIAN: Wilma Ty MD HISTORY OF PRESENT ILLNESS: Patient is a 63-year-old female with a past medical history of HIV, noncompliance with medication in the past few weeks, insulin-dependent diabetes mellitus, asthma, COPD, polysubstance abuse, admitted to [facility] with increasing shortness of breath and lower extremity edema. Patient apparently has not been feeling well. She states that for the past week or so she has noticed increasing lower extremity edema. Approximately 2 hours prior to admission the patient started feeling shortness of breath without a cough or chest pain. She presented to the ER. In the ER she was noted to be hypoxic with O2 saturations in the 80s and 90s. She was subsequently placed on BiPAP. She was felt to be in acute congestive heart failure and given IV Lasix. She was evaluated by Dr. Terry for cardiology consultation. Patient denies any history of occupational exposures. She denies any history of cardiac disease. She has a history of smoking about a half a pack a day for many years. She was born in [place] and moved to the [facility] greater than 40 years ago. She denies any history of DVT or PE in the past. PAST MEDICAL HISTORY: Again includes HIV, asthma, insulin-dependent diabetes mellitus, COPD, polysubstance abuse. REVIEW OF SYSTEMS: No orthopnea, no PND. Positive shortness of breath. No chest pain, no palpitations, no cough, no hemoptysis, no fever, no weight loss, no night sweats. Positive lower extremity edema. CURRENT MEDICATIONS: Include fluticasone, Advair, Remeron, Biktarvy, , Silvadene, nicotine patch, DuoNeb, Norvasc, Pepcid, Lasix IV , Claritin, vitamin D1. PHYSICAL EXAMINATION: General: Patient is a well-developed and -nourished female, awake, alert, in no acute distress. Vital Signs: She is afebrile. Blood pressure is 157/93, respiratory rate is 20, O2 saturation is 97% on 2 L, nasal cannula. HEENT: Normocephalic, atraumatic. Neck: Supple. Heart: Regular with S1, S2. Chest: A few bibasilar crackles. Abdomen: Soft. Bowel sounds positive. Extremities: Bilateral lower extremity edema. LABORATORIES: Lactate level is 2.7. BUN is 18, creatinine 0.6. BNP is 371. Blood gas: 7.34, PCO2 of 86, bicarbonate of 27; that was a venous blood gas. WBC is 9.1, hemoglobin 12.8, hematocrit 40.7 with a platelet count not performed. Chest x-ray: There were no acute infiltrates or effusions. IMPRESSION: 1. Acute hypoxic hypercapnic respiratory failure. 2. Likely acute congestive heart failure. 3. History of asthma, not in acute exacerbation. 4. Human immunodeficiency virus. 5. Polysubstance abuse. 6. Tobacco abuse. 7. Elevated lactate level. 8. Diabetes. PLAN: Continue Lasix. Supplemental O2. Inhaled bronchodilators. Daily weights. Obtain echo. Trend lactate. Monitor blood sugars. Followup chest x-rays. Get an arterial blood gas on room air. Ambulatory O2 saturation prior to discharge to determine whether patient is a candidate for home O2. WILMA JETT M.D. CINDA/[id number]
[2019-06-20] MEDS ORDERED: ACETAMINOPHEN 1000 MG/100 ML VIAL (NON FORMULARY) IVPB ONE ×2 (17:24→22:51)
[2019-06-20] MEDS ORDERED: LORazepam 1 MG TABLET PO ONE (20:15)
[2019-06-20] MEDS ORDERED: PT OWN MED DRAWER 7, Y5N ONE ×2 (20:54→23:42)
[2019-06-20] MEDS: PERPHENAZINE 4 MG TABLET PO SCH (21:14)
[2019-06-20] MEDS: MIRTAZAPINE 15 MG TABLET (FP) PO SCH (21:14)
[2019-06-20] MEDS: ZOLPIDEM TARTRATE 5 MG TABLET PO PRN (22:15)
--- NOTE | 2019-06-20 23:42 | PN ---
Progress Note (short form) - Note Progress Note: Jania (Nurse) paged me regarding initiating methadone 40mg dose at 7 AM tm morning, stating she confirmed this is her maintenance dose at [facility]. Just want day team Primary team to be aware. Thank you.
[2019-06-21] MEDS: METHADONE HCL 40 MG DISPERSABLE TABLET PO SCH (06:09)
[2019-06-21 07:07] LABS: BASO % 0.4 % (0-2.0); EOS % 0.6 % (0-4.5); HEMATOCRIT 43.8 % (32.4-45.2); HEMOGLOBIN 14.2 GM/dL (10.7-15.3); LYMPH % 34.6 % (8-40); MCHC 32.4 g/dl (32.0-36.0); MEAN CELL VOLUME 86.6 fl (80-96); MEAN PLT VOLUME 10.2 fl (7.5-11.1); MONO % 11.5 % (3.8-10.2); NEUT % 52.9 % (42.8-82.8); PLATELET COUNT 146 K/MM3 (134-434); RBC 5.06 M/mm3 (3.60-5.2); RDW 15.7 % (11.6-15.6); WHITE BLOOD COUNT 6.2 K/mm3 (4.0-10.0)
[2019-06-21 07:11] LABS: BLOOD UREA NITROGEN 11.4 mg/dL (7-18); CALCIUM 8.2 mg/dL (8.5-10.1); CREATININE 0.6 mg/dL (0.55-1.3); POTASSIUM 3.2 mmol/L (3.5-5.1)
--- NOTE | 2019-06-21 08:12 | HP ---
63 year old female with a PMH of asthma, COPD, depression, HIV, IDDM, Etoh dependence, ?LESYL, presents with R neck and R foot pain. Patient is a poor historian, gives a vague history of why exactly shes here, she follows up regularly with [facility] and last encounter noted her dog was sick and shes been drinking because of that and taking Ativan. Patient otherwise denies CP/SOB/dizziness/fall/LOC/abdominal pain, urinary symptoms, denies slurred speech or weakness. She explains when she lays down she feels her R "neck pulsation", which makes her anxious and prompted her to go to ER. PE VSS GA comrtable, using bedside commode, ambulating around stretcher, AAox3 HEENT NC/AT, EOMI, no carotid bruits, neck supple, mild JVD Chest CTAB, faint wheezes scattered b/l CVS S1, S2+, RRR Abd Soft, obese, NT, no guarding BS+ Ext no LE edema, no calf tenderness A/P: 63 Kinyar[place]anda speaking F h/o COPD/asthma, PSA on Methadone, depression, HIV on HAART, IDDM, Etoh dependence, ?LESLY presents with R neck discomfort. R neck discomfort Repeat trops, EKG, obtain Echo/carotids Tylenol for pain Cardiology consult COPD/Asthma Mild exacerbation Duonebs PRN, hold off steroids for now PSA on Methadone Last dose verified 40mg daily Restart, QTc OK, Mg PRN Depression/mood disorder Restart psych meds HIV Last CD4 in 400s 04/2019 Restart HAART DM ISS, basal insulin PRN Etoh dependence No signs of acute withdrawal Ativan PRN, Thiamine/FA/MV ?LESLY obtain sleep screen Tele monitoring Lovenox DVT ppx Visit type - Emergency Visit Emergency Visit: Yes ED Registration Date: 06/19/19 Care time: The patient presented to the Emergency Department on the above date and was hospitalized for further evaluation of their emergent condition. - New Patient This patient is new to me today: Yes Date on this admission: 06/21/19 - Critical Care Critical Care patient: No
--- NOTE | 2019-06-21 08:16 | PN ---
Physical Exam: Subjective: Patient seen and examined at bedside, asking for Ativan for anxiety, otherwise ambulating around the room, Echo showing slightly decreased EF and moderately decreased RV systolic function, Cardiology recommending CTA to r/o PE. VSS. PE GA AAox3, speaking in full sentences, NAD, ambulating around to bathroom and in hallway HEENT NC/AT, EOMI, no carotid bruits, neck supple, mild JVD Chest CTAB,no crackles or wheezing CVS S1, S2+, RRR Abd Soft, obese, NT, no guarding BS+ Ext no LE edema, no calf tenderness A/P: r/o ACS trops neg x2, Echo indicating reduced EF and reduced RV systolic function Obtain CTA to rule out PE in view of low O2 sats Tylenol for pain, advise smoking cessation Cardiology consult: Dr Terry COPD/Asthma no acute exacerbation Duonebs PRN, hold off steroids for now advise smoking cessation PSA on Methadone Last dose verified 40mg daily Restart, QTc OK, Mg PRN Depression/mood disorder Restart psych meds HIV Last CD4 in 400s 04/2019 Restart HAART DM ISS, basal insulin PRN Etoh dependence No signs of acute withdrawal Ativan PRN, Thiamine/FA/MV At discharge would offer patient if she would like to go to [facility] for treatment ?LESLY obtain sleep screen Tele monitoring DVT ppx: Ambulation Visit type - Emergency Visit Emergency Visit: Yes ED Registration Date: 06/19/19 Care time: The patient presented to the Emergency Department on the above date and was hospitalized for further evaluation of their emergent condition. - New Patient This patient is new to me today: No - Critical Care Critical Care patient: No - Discharge Referral Referred to [facility] Med P.C.: No
[2019-06-21] MEDS ORDERED: PT OWN MED DRAWER 7, Y5N ONE ×2 (08:54→17:25)
[2019-06-21] MEDS: ASPIRIN 81 MG CHEWABLE TABLETS PO SCH (09:26)
[2019-06-21] MEDS: BICTEGRAV/EMTRICIT/TENOFOV (BIKTARVY) 50-200-25 MG TABLET PO SCH (09:26)
[2019-06-21] MEDS: FAMOTIDINE 20 MG TABLET PO SCH (09:26)
[2019-06-21] MEDS: THIAMINE HCL 100 MG TABLET (FP) PO SCH (09:26)
[2019-06-21] MEDS: FUROSEMIDE 40 MG/4 ML INJECTABLE VIAL IVPUSH SCH (09:26)
[2019-06-21] MEDS: MULTIVITAMINS (DAILY MVI) TABLET (FP) PO SCH (09:26)
[2019-06-21] MEDS: LORATADINE 10 MG TABLET PO SCH (09:26)
[2019-06-21] MEDS: FLUTICASONE/SALMETEROL 100 MCG/50 MCG DISKUS IH SCH ×2 (09:27→22:33)
[2019-06-21] MEDS: amLODIPine BESYLATE 10 MG TABLET (FP) PO SCH (09:29)
--- NOTE | 2019-06-21 11:24 | PN ---
Physical Exam: SUBJECTIVE: Patient seen and examined. She denies SOB. OBJECTIVE: Vital Signs Period Temp Pulse Resp BP Sys/Forrest Pulse Ox Last 24 Hr 98.3 F-98.8 F 94-111 18-20 147-153/79-95 91-98 GENERAL: The patient is awake, alert, and fully oriented, in no acute distress. LUNGS: Breath sounds equal, clear to auscultation bilaterally, scattered crackles, no accessory muscle use. HEART: Regular rate and rhythm, S1, S2, (+) 3/6 systolic murmur. ABDOMEN: Soft, nontender, nondistended, normoactive bowel sounds, no guarding, no rebound, no hepatosplenomegaly, no masses. EXTREMITIES: 2+ pulses, warm, well-perfused, trace edema. Laboratory Results - last 24 hr 06/19/19 06/19/19 06/19/19 13:33 13:33 18:55 WBC RBC Hgb Hct MCV MCH MCHC RDW Plt Count MPV Absolute Neuts (auto) Neutrophils % Lymphocytes % Monocytes % Eosinophils % Basophils % Nucleated RBC % VBG pH 7.34 POC VBG pCO2 52.1 H POC VBG pO2 86.9 H VBG HCO3 27.2 VBG O2 Sat (Abiodun) 94.2 H VBG Base Excess 1.1 Sodium 145 Potassium 4.2 Chloride 108 H Carbon Dioxide 27 Anion Gap 9 BUN 18.0 Creatinine 0.6 Est GFR (CKD-EPI)AfAm 114.02 Est GFR (CKD-EPI)NonAf 98.38 Random Glucose 75 Lactic Acid 2.7 H* Calcium 8.8 Total Bilirubin 0.4 AST 56 H ALT 24 Alkaline Phosphatase 64 Creatine Kinase Creatine Kinase Index CK-MB (CK-2) Troponin I Total Protein 7.8 Albumin 3.4 06/20/19 06/20/19 06/21/19 10:35 12:51 05:50 WBC RBC Hgb Hct MCV MCH MCHC RDW Plt Count MPV Absolute Neuts (auto) Neutrophils % Lymphocytes % Monocytes % Eosinophils % Basophils % Nucleated RBC % VBG pH POC VBG pCO2 POC VBG pO2 VBG HCO3 VBG O2 Sat (Abiodun) VBG Base Excess Sodium 141 Potassium 3.2 L Chloride 98 Carbon Dioxide 34 H Anion Gap 10 BUN 11.4 Creatinine 0.6 Est GFR (CKD-EPI)AfAm 114.02 Est GFR (CKD-EPI)NonAf 98.38 Random Glucose 126 H Lactic Acid 1.1 Calcium 8.2 L Total Bilirubin AST ALT Alkaline Phosphatase Creatine Kinase 180 Creatine Kinase Index 1.3 CK-MB (CK-2) 2.4 Troponin I < 0.02 Total Protein Albumin 06/21/19 05:50 WBC 6.2 RBC 5.06 Hgb 14.2 Hct 43.8 MCV 86.6 MCH 28.0 MCHC 32.4 RDW 15.7 H Plt Count 146 D MPV 10.2 D Absolute Neuts (auto) 3.3 Neutrophils % 52.9 Lymphocytes % 34.6 D Monocytes % 11.5 H Eosinophils % 0.6 D Basophils % 0.4 Nucleated RBC % 0 VBG pH POC VBG pCO2 POC VBG pO2 VBG HCO3 VBG O2 Sat (Abiodun) VBG Base Excess Sodium Potassium Chloride Carbon Dioxide Anion Gap BUN Creatinine Est GFR (CKD-EPI)AfAm Est GFR (CKD-EPI)NonAf Random Glucose Lactic Acid Calcium Total Bilirubin AST ALT Alkaline Phosphatase Creatine Kinase Creatine Kinase Index CK-MB (CK-2) Troponin I Total Protein Albumin Active Medications Generic Name Dose Route Start Last Admin Trade Name Freq PRN Reason Stop Dose Admin Albuterol/Ipratropium 1 amp 06/19/19 20:03 Duoneb - NEB Q4H PRN SHORTNESS OF BREATH Amlodipine Besylate 10 mg 06/20/19 11:30 06/21/19 09:29 Norvasc - PO 10 mg DAILY ROSA Administration Aspirin 81 mg 06/20/19 10:00 06/21/19 09:26 Asa - PO 81 mg DAILY ROSA Administration Bictegravir/Emtricitabine/Tenofovir 1 each 06/20/19 10:00 06/21/19 09:26 Biktarvy 50-200-25 Mg Tablet PO 1 each DAILY ROSA Administration Famotidine 20 mg 06/20/19 10:00 06/21/19 09:26 Pepcid - PO 20 mg DAILY ROSA Administration Furosemide 40 mg 06/21/19 10:00 06/21/19 09:26 Lasix Injection - IVPUSH 40 mg DAILY ROSA Administration Loratadine 10 mg 06/20/19 10:00 06/21/19 09:26 Claritin - PO 10 mg DAILY ROSA Administration Methadone HCl 40 mg 06/21/19 06:00 06/21/19 06:09 Dolophine - PO 40 mg DAILY@0600 ROSA Administration Mirtazapine 15 mg 06/19/19 22:00 06/20/19 21:14 Remeron - PO 15 mg HS ROSA Administration Multivitamins/Minerals/Vitamin C 1 tab 06/20/19 10:00 06/21/19 09:26 Tab-A-Vit - PO 1 tab DAILY ROSA Administration Nicotine Polacrilex 2 mg 06/19/19 16:30 Nicorette Gum - BUC Q2H PRN NICOTINE REPLACEMENT RX Perphenazine 4 mg 06/19/19 22:00 06/20/19 21:14 Trilafon PO 4 mg HS ROSA Administration Fluticasone/Salmeterol 1 puff 06/19/19 22:00 06/21/19 09:27 Advair 100mcg/50mcg - IH 1 puff BID ROSA Administration Thiamine HCl 100 mg 06/20/19 10:00 06/21/19 09:26 Vitamin B1 - PO 100 mg DAILY [facility]A Administration Zolpidem Tartrate 10 mg 06/19/19 22:00 06/20/19 22:15 Ambien - PO 10 mg HS PRN Administration INSOMNIA ASSESSMENT/PLAN: This is a 63 year old woman with a history of asthma/COPD, type 2 DM, HIV, anxiety/depression, alcohol abuse, opioid abuse, LESLY who presented to the ED with right neck and right foot pain, SOB. EMS found her to be hypoxic. 1. Acute diastolic heart failure - Troponin negative x 2 - Improving with Lasix IV - Chest CTA showed no PE, minimal bilateral lower lobe atelectasis/scarring, 0.8 cm left thyroid nodule, mild cardiomegaly - Echo showed LVEF 50-55%, mild to moderately dilated RV, mildly dilated LA, mildly dilated RA, mild MR, mild to moderate TR, RVSP 30-40 mmHg, mildly dilated IVC 2. Lactic acidosis - Improved 3. Asthma/COPD - Stable - Continue Advair 4. Type 2 DM - HbA1c 6.5 on 05/07/19 - Fingersticks with Novolog sliding scale 5. HIV - Continue Biktarvy 6. Depression with anxiety - Continue Trilafon - Resume home doses of Remeron, Abilify, Zoloft 7. Alcohol dependence, continuous - No signs of withdrawal - Continue thiamine, multivitamin - Add folic acid 8. Opioid dependence - Continue Methadone 9. Nicotine dependence - Continue nicotine gum 10. LESLY 11. Obesity with BMI 34.9 Visit type - Emergency Visit Emergency Visit: Yes ED Registration Date: 06/19/19 Care time: The patient presented to the Emergency Department on the above date and was hospitalized for further evaluation of their emergent condition. - New Patient This patient is new to me today: Yes Date on this admission: 06/21/19 - Critical Care Critical Care patient: No - Discharge Referral Referred to [facility] Med P.C.: No
--- NOTE | 2019-06-21 11:27 | PN ---
Progress Note (short form) - Note Progress Note: PULMONARY CTA NO PE VSS/AFEBRILE Constitutional: Yes: No Distress, Calm Eyes: Yes: Conjunctiva Clear Neck: Yes: Trachea Midline Respiratory: Yes: Other (decreased breath sounds bilaterally, no active wheezing) Gastrointestinal: Yes: Soft JVD: No Carotid Bruit: No Heart Sounds: Yes: S1, S2 (LOUD SYSTOLIC MURMUR) Edema: LLE: 1+, RLE: 1+ LABS/MEDS/NOTES/IMAGES REVIEWED IMP ACUTE HYPOXEMIC/HYPOXEMIC RESPIRATORY FAILURE LIKELY ACUTE CHF H/O ASTHMA HIV POLYSUBSTANCE ABUSE TOBACCO ABUSE IDDM ELEVATED LACTATE LEVEL PLAN LASIX SUPPLEMENTAL O2 INHALED BRONCHODILATORS DAILY WTS ECHO RVSP 30-40 TREND LACTATE MONITOR BLOOD SUGARS AMBULATORY SAT ON RA PRIOR TO DISCHARGE Cory MEZA MD
--- NOTE | 2019-06-21 11:35 | PN ---
Progress Note (short form) - Note Progress Note: s: feels better. no chest pain, palps, dizziness. Current Medications Albuterol/Ipratropium (Duoneb -) 1 amp NEB Q4H PRN PRN Reason: SHORTNESS OF BREATH Amlodipine Besylate (Norvasc -) 10 mg PO DAILY [facility] Last Admin: 06/21/19 09:29 Dose: 10 mg Documented by: Aspirin (Asa -) 81 mg PO DAILY [facility] Last Admin: 06/21/19 09:26 Dose: 81 mg Documented by: Bictegravir/Emtricitabine/Tenofovir (Biktarvy 50-200-25 Mg Tablet) 1 each PO DAILY [facility] Last Admin: 06/21/19 09:26 Dose: 1 each Documented by: Famotidine (Pepcid -) 20 mg PO DAILY [facility] Last Admin: 06/21/19 09:26 Dose: 20 mg Documented by: Furosemide (Lasix Injection -) 40 mg IVPUSH DAILY [facility] Last Admin: 06/21/19 09:26 Dose: 40 mg Documented by: Loratadine (Claritin -) 10 mg PO DAILY [facility] Last Admin: 06/21/19 09:26 Dose: 10 mg Documented by: Methadone HCl (Dolophine -) 40 mg PO DAILY@0600 [facility] Last Admin: 06/21/19 06:09 Dose: 40 mg Documented by: Mirtazapine (Remeron -) 15 mg PO [facility] Last Admin: 06/20/19 21:14 Dose: 15 mg Documented by: Multivitamins/Minerals/Vitamin C (Tab-A-Vit -) 1 tab PO DAILY [facility] Last Admin: 06/21/19 09:26 Dose: 1 tab Documented by: Nicotine Polacrilex (Nicorette Gum -) 2 mg BUC Q2H PRN PRN Reason: NICOTINE REPLACEMENT RX Perphenazine (Trilafon) 4 mg PO [facility] Last Admin: 06/20/19 21:14 Dose: 4 mg Documented by: Fluticasone/Salmeterol (Advair 100mcg/50mcg -) 1 puff IH BID [facility] Last Admin: 06/21/19 09:27 Dose: 1 puff Documented by: Thiamine HCl (Vitamin B1 -) 100 mg PO DAILY [facility] Last Admin: 06/21/19 09:26 Dose: 100 mg Documented by: Zolpidem Tartrate (Ambien -) 10 mg PO HS PRN PRN Reason: INSOMNIA Last Admin: 06/20/19 22:15 Dose: 10 mg Documented by: Vital Signs Period Temp Pulse Resp BP Sys/Forrest Pulse Ox Last 24 Hr 98.3 F-98.8 F 94-111 18-20 147-153/79-95 91-98 Constitutional: Yes: No Distress, Calm Eyes: Yes: Conjunctiva Clear Neck: Yes: Trachea Midline Respiratory: Yes: Other (decreased breath sounds bilaterally, no active wheezing) Gastrointestinal: Yes: Soft JVD: No Carotid Bruit: No Heart Sounds: Yes: S1, S2 Murmur: Yes: Systolic Murmur Edema: Yes Edema: LLE: 1+, RLE: 1+ Neurological: Yes: Alert, Oriented no jaundice, diaphoresis not agitated Imaging - Results Chest X-ray: Image Reviewed (increased PVC (my read)) EKG: Image Reviewed (NSR 97bpm, no acute ST changes)) echo 06/2019 EF 50-55%, RV mild to moderately dilated, nl RV function, mild biatrial enlargement, RVSP 30-40 mmHg, mildly dilated IVC tele: sinus, artifact Assessment/Plan IMP: Mild acute CHF (systolic vs diastolic) DM Smoker ETOH abuse HIV REC: 1. acute diastolic CHF -Serial enzymes -Echo EF 50-55% with mild to mod dilated RV with nl RV funciton - no PE on CTA - cont Lasix 40mg IV daily -Daily weights, BMP follow renal fx -consider ischemic evaluation when euvolemic. If reliable f/u, could be done as outpatient. 2. DM: -As per PMD 3. Smoker: -Complete cessation advised 4. Etoh abuse: -would offer rehab 5. HIV: -Places her at increased risk of CAD and cardiomyopathy -Meds as per PMD
[2019-06-21] MEDS ORDERED: POTASSIUM CHLORIDE TABS 20 MEQ TABLET.ER (FP) PO ONE (11:47)
[2019-06-21] MEDS: SERTRALINE HCL 50 MG TABLET (FP) PO SCH (15:26)
[2019-06-21] MEDS: ARIPiprazole 15 MG TABLET PO SCH (17:35)
[2019-06-21] MEDS ORDERED: LORazepam 1 MG TABLET PO ONE (18:12)
[2019-06-21] MEDS ORDERED: MIRTAZAPINE 15 MG TABLET (FP) PO SCH (22:00)
[2019-06-21] MEDS: ZOLPIDEM TARTRATE 5 MG TABLET PO PRN (22:24)
[2019-06-21] MEDS: PERPHENAZINE 4 MG TABLET PO SCH (22:24)
[2019-06-21] MEDS: INSULIN SLIDING SCALE (NOVOLOG) 1 VIAL SQ SCH (22:26)
[2019-06-22] MEDS ORDERED: ACETAMINOPHEN 500 MG TABLET (FP) PO ONE (00:11)
[2019-06-22] MEDS: METHADONE HCL 40 MG DISPERSABLE TABLET PO SCH (05:28)
[2019-06-22] MEDS: INSULIN SLIDING SCALE (NOVOLOG) 1 VIAL SQ SCH ×4 (06:48→21:17)
[2019-06-22] MEDS ORDERED: PT OWN MED DRAWER 7, Y5N ONE ×2 (08:16→21:03)
[2019-06-22 08:22] LABS: BLOOD UREA NITROGEN 15.8 mg/dL (7-18); CALCIUM 7.9 mg/dL (8.5-10.1); CREATININE 0.8 mg/dL (0.55-1.3); MAGNESIUM 0.8 mg/dL (1.8-2.4); POTASSIUM 3.5 mmol/L (3.5-5.1)
[2019-06-22] MEDS: ARIPiprazole 15 MG TABLET PO SCH (09:15)
[2019-06-22] MEDS ORDERED: MAGNESIUM SULF 50% (8.12 MEQ/2 ML-1 GM VIAL) IVPB ONE (09:15)
[2019-06-22] MEDS: SERTRALINE HCL 50 MG TABLET (FP) PO SCH (09:16)
[2019-06-22] MEDS: BICTEGRAV/EMTRICIT/TENOFOV (BIKTARVY) 50-200-25 MG TABLET PO SCH (09:16)
[2019-06-22] MEDS: amLODIPine BESYLATE 10 MG TABLET (FP) PO SCH (09:17)
[2019-06-22] MEDS: FAMOTIDINE 20 MG TABLET PO SCH (09:17)
[2019-06-22] MEDS: ASPIRIN 81 MG CHEWABLE TABLETS PO SCH (09:17)
[2019-06-22] MEDS: FUROSEMIDE 40 MG/4 ML INJECTABLE VIAL IVPUSH SCH (09:17)
[2019-06-22] MEDS: FLUTICASONE/SALMETEROL 100 MCG/50 MCG DISKUS IH SCH ×2 (09:17→21:15)
[2019-06-22] MEDS: THIAMINE HCL 100 MG TABLET (FP) PO SCH (09:17)
[2019-06-22] MEDS: MULTIVITAMINS (DAILY MVI) TABLET (FP) PO SCH (09:17)
[2019-06-22] MEDS: LORATADINE 10 MG TABLET PO SCH (09:17)
[2019-06-22] MEDS ORDERED: FOLIC ACID 1 MG TABLET (FP) PO SCH (10:00)
--- NOTE | 2019-06-22 11:53 | PN ---
Progress Note (short form) - Note Progress Note: s no chest pain, palps, dizziness, dyspnea Current Medications Albuterol/Ipratropium (Duoneb -) 1 amp NEB Q4H PRN PRN Reason: SHORTNESS OF BREATH Amlodipine Besylate (Norvasc -) 10 mg PO DAILY [facility] Last Admin: 06/22/19 09:17 Dose: 10 mg Documented by: Aripiprazole (Abilify) 15 mg PO DAILY [facility] Last Admin: 06/22/19 09:15 Dose: 15 mg Documented by: Aspirin (Asa -) 81 mg PO DAILY [facility] Last Admin: 06/22/19 09:17 Dose: 81 mg Documented by: Bictegravir/Emtricitabine/Tenofovir (Biktarvy 50-200-25 Mg Tablet) 1 each PO DAILY [facility] Last Admin: 06/22/19 09:16 Dose: 1 each Documented by: Famotidine (Pepcid -) 20 mg PO DAILY [facility] Last Admin: 06/22/19 09:17 Dose: 20 mg Documented by: Folic Acid (Folic Acid -) 1 mg PO DAILY [facility] Last Admin: 06/22/19 09:17 Dose: 1 mg Documented by: Furosemide (Lasix Injection -) 40 mg IVPUSH DAILY [facility] Last Admin: 06/22/19 09:17 Dose: 40 mg Documented by: Insulin Aspart (Novolog Vial Sliding Scale -) 1 vial SQ [facility]; Protocol Last Admin: 06/22/19 06:48 Dose: Not Given Documented by: Loratadine (Claritin -) 10 mg PO DAILY [facility] Last Admin: 06/22/19 09:17 Dose: 10 mg Documented by: Methadone HCl (Dolophine -) 40 mg PO DAILY@0600 [facility] Last Admin: 06/22/19 05:28 Dose: 40 mg Documented by: Mirtazapine (Remeron -) 45 mg PO [facility] Last Admin: 06/21/19 22:24 Dose: 45 mg Documented by: Multivitamins/Minerals/Vitamin C (Tab-A-Vit -) 1 tab PO DAILY [facility] Last Admin: 06/22/19 09:17 Dose: 1 tab Documented by: Nicotine Polacrilex (Nicorette Gum -) 2 mg BUC Q2H PRN PRN Reason: NICOTINE REPLACEMENT RX Perphenazine (Trilafon) 4 mg PO [facility] Last Admin: 06/21/19 22:24 Dose: 4 mg Documented by: Fluticasone/Salmeterol (Advair 100mcg/50mcg -) 1 puff IH BID [facility] Last Admin: 06/22/19 09:17 Dose: 1 puff Documented by: Sertraline HCl (Zoloft -) 125 mg PO DAILY [facility] Last Admin: 06/22/19 09:16 Dose: 125 mg Documented by: Thiamine HCl (Vitamin B1 -) 100 mg PO DAILY [facility] Last Admin: 06/22/19 09:17 Dose: 100 mg Documented by: Zolpidem Tartrate (Ambien -) 10 mg PO HS PRN PRN Reason: INSOMNIA Last Admin: 06/21/19 22:24 Dose: 10 mg Documented by: Vital Signs Period Temp Pulse Resp BP Sys/Forrest Pulse Ox Last 24 Hr 98.1 F-98.6 F 93-114 18-20 119-151/78-99 94-95 Constitutional: Yes: No Distress, Calm Eyes: Yes: Conjunctiva Clear Neck: Yes: Trachea Midline Respiratory: Yes: Other (decreased breath sounds bilaterally, no active wheezing) Gastrointestinal: Yes: Soft JVD: No Carotid Bruit: No Heart Sounds: Yes: S1, S2 Murmur: Yes: Systolic Murmur Edema: Yes Edema: LLE: 1+, RLE: 1+ Neurological: Yes: Alert, Oriented no jaundice, diaphoresis not agitated Imaging - Results Chest X-ray: Image Reviewed (increased PVC (my read)) EKG: Image Reviewed (NSR 97bpm, no acute ST changes)) echo 06/2019 EF 50-55%, RV mild to moderately dilated, nl RV function, mild biatrial enlargement, RVSP 30-40 mmHg, mildly dilated IVC tele: sinus, artifact Assessment/Plan IMP: Mild acute CHF (systolic vs diastolic) DM Smoker ETOH abuse HIV REC: 1. acute diastolic CHF -Serial enzymes -Echo EF 50-55% with mild to mod dilated RV with nl RV funciton - no PE on CTA - improved with Lasix 40mg IV daily - appears euvolemic and feels at baseline, change to PO lasix - mibi ordered for ischemic eval 2. DM: -As per PMD 3. Smoker: -Complete cessation advised 4. Etoh abuse: -would offer rehab 5. HIV: -Places her at increased risk of CAD and cardiomyopathy -Meds as per PMD 1
--- NOTE | 2019-06-22 12:21 | PN ---
Progress Note (short form) - Note Progress Note: PULMONARY CTA NO PE VSS/AFEBRILE Constitutional: Yes: No Distress, Calm Eyes: Yes: Conjunctiva Clear Neck: Yes: Trachea Midline Respiratory: Yes: Other (decreased breath sounds bilaterally, no active wheezing) Gastrointestinal: Yes: Soft JVD: No Carotid Bruit: No Heart Sounds: Yes: S1, S2 (LOUD SYSTOLIC MURMUR) Edema: LLE: 1+, RLE: 1+ LABS/MEDS/NOTES/IMAGES REVIEWED IMP ACUTE HYPOXEMIC/HYPOXEMIC RESPIRATORY FAILURE LIKELY ACUTE CHF H/O ASTHMA HIV POLYSUBSTANCE ABUSE TOBACCO ABUSE IDDM ELEVATED LACTATE LEVEL PLAN LASIX SUPPLEMENTAL O2 INHALED BRONCHODILATORS DAILY WTS ECHO RVSP 30-40 MONITOR BLOOD SUGARS AMBULATORY SAT ON RA PRIOR TO DISCHARGE Cory MEZA MD
--- NOTE | 2019-06-22 14:59 | PN ---
Physical Exam: SUBJECTIVE: Patient seen and examined. She feels better today. She denies SOB. OBJECTIVE: Vital Signs Period Temp Pulse Resp BP Sys/Forrest Pulse Ox Last 24 Hr 98.1 F-98.6 F 93-114 18-20 119-151/78-99 94-95 GENERAL: The patient is awake, alert, and fully oriented, in no acute distress. LUNGS: Breath sounds equal, clear to auscultation bilaterally, scattered crackles, no accessory muscle use. HEART: Regular rate and rhythm, S1, S2, (+) 3/6 systolic murmur. ABDOMEN: Soft, nontender, nondistended, normoactive bowel sounds, no guarding, no rebound, no hepatosplenomegaly, no masses. EXTREMITIES: 2+ pulses, warm, well-perfused, no edema. Laboratory Results - last 24 hr 06/21/19 06/22/19 06/22/19 22:26 05:20 06:30 Sodium 139 Potassium 3.5 Chloride 97 L Carbon Dioxide 33 H Anion Gap 9 BUN 15.8 Creatinine 0.8 Est GFR (CKD-EPI)AfAm 92.22 Est GFR (CKD-EPI)NonAf 79.57 POC Glucometer 227 155 Random Glucose 133 H Calcium 7.9 L Magnesium 0.8 L 06/22/19 10:57 Sodium Potassium Chloride Carbon Dioxide Anion Gap BUN Creatinine Est GFR (CKD-EPI)AfAm Est GFR (CKD-EPI)NonAf POC Glucometer 149 Random Glucose Calcium Magnesium Active Medications Generic Name Dose Route Start Last Admin Trade Name Freq PRN Reason Stop Dose Admin Albuterol/Ipratropium 1 amp 06/19/19 20:03 Duoneb - NEB Q4H PRN SHORTNESS OF BREATH Amlodipine Besylate 10 mg 06/20/19 11:30 06/22/19 09:17 Norvasc - PO 10 mg DAILY [facility] Administration Aripiprazole 15 mg 06/21/19 15:14 06/22/19 09:15 Abilify PO 15 mg DAILY [facility] Administration Aspirin 81 mg 06/20/19 10:00 06/22/19 09:17 Asa - PO 81 mg DAILY [facility] Administration Bictegravir/Emtricitabine/Tenofovir 1 each 06/20/19 10:00 06/22/19 09:16 Biktarvy 50-200-25 Mg Tablet PO 1 each DAILY [facility] Administration Famotidine 20 mg 06/20/19 10:00 06/22/19 09:17 Pepcid - PO 20 mg DAILY [facility] Administration Folic Acid 1 mg 06/22/19 10:00 06/22/19 09:17 Folic Acid - PO 1 mg DAILY [facility] Administration Furosemide 40 mg 06/23/19 10:00 Lasix - PO DAILY [facility] Insulin Aspart 1 vial 06/21/19 22:00 06/22/19 11:00 Novolog Vial Sliding Scale - SQ Not Given [facility] Protocol Loratadine 10 mg 06/20/19 10:00 06/22/19 09:17 Claritin - PO 10 mg DAILY [facility] Administration Methadone HCl 40 mg 06/21/19 06:00 06/22/19 05:28 Dolophine - PO 40 mg DAILY@0600 [facility] Administration Mirtazapine 45 mg 06/21/19 22:00 06/21/19 22:24 Remeron - PO 45 mg HS [facility] Administration Multivitamins/Minerals/Vitamin C 1 tab 06/20/19 10:00 06/22/19 09:17 Tab-A-Vit - PO 1 tab DAILY [facility] Administration Nicotine Polacrilex 2 mg 06/19/19 16:30 Nicorette Gum - BUC Q2H PRN NICOTINE REPLACEMENT RX Perphenazine 4 mg 06/19/19 22:00 06/21/19 22:24 Trilafon PO 4 mg HS [facility] Administration Fluticasone/Salmeterol 1 puff 06/19/19 22:00 06/22/19 09:17 Advair 100mcg/50mcg - IH 1 puff BID [facility] Administration Sertraline HCl 125 mg 06/21/19 15:15 06/22/19 09:16 Zoloft - PO 125 mg DAILY [facility] Administration Thiamine HCl 100 mg 06/20/19 10:00 06/22/19 09:17 Vitamin B1 - PO 100 mg DAILY [facility] Administration Zolpidem Tartrate 10 mg 06/19/19 22:00 06/21/19 22:24 Ambien - PO 10 mg HS PRN Administration INSOMNIA ASSESSMENT/PLAN: This is a 63 year old woman with a history of asthma/COPD, type 2 DM, HIV, anxiety/depression, alcohol abuse, opioid abuse, LESLY who presented to the ED with right neck and right foot pain, SOB. EMS found her to be hypoxic. 1. Acute diastolic heart failure - Troponin negative x 2 - Improved with Lasix IV - change to PO - Chest CTA showed no PE, minimal bilateral lower lobe atelectasis/scarring, 0.8 cm left thyroid nodule, mild cardiomegaly - Echo showed LVEF 50-55%, mild to moderately dilated RV, mildly dilated LA, mildly dilated RA, mild MR, mild to moderate TR, RVSP 30-40 mmHg, mildly dilated IVC - Plan for stress test tomorrow 2. Lactic acidosis - Improved 3. Hypokalemia - Continue to replete potassium as needed 4. Hypomagnesemia - Supplement magnesium 5. Asthma/COPD - Stable - Continue Advair 6. Type 2 DM - HbA1c 6.5 on 05/07/19 - Fingersticks with Novolog sliding scale 7. HIV - Continue Biktarvy 8. Depression with anxiety - Continue Trilafon, Remeron, Abilify, Zoloft 9. Alcohol dependence, continuous - No signs of withdrawal - Continue thiamine, multivitamin, folic acid 10. Opioid dependence - Continue Methadone 11. Nicotine dependence - Continue nicotine gum 12. LESLY 13. Obesity with BMI 34.9 Visit type - Emergency Visit Emergency Visit: Yes ED Registration Date: 06/19/19 Care time: The patient presented to the Emergency Department on the above date and was hospitalized for further evaluation of their emergent condition. - New Patient This patient is new to me today: No - Critical Care Critical Care patient: No - Discharge Referral Referred to [facility] No
[2019-06-22] MEDS ORDERED: ALBUTEROL SO4 2.5/IPRATROPIUM 0.5 INH SOL 3 ML VIAL.NEB. NEB PRN (20:01)
[2019-06-22] MEDS ORDERED: NICOTINE POLACRILEX 2 MG GUM BUC PRN (20:01)
[2019-06-22] MEDS ORDERED: ZOLPIDEM TARTRATE 5 MG TABLET PO PRN (20:01)
[2019-06-22] MEDS ORDERED: MIRTAZAPINE 15 MG TABLET (FP) PO SCH (22:00)
[2019-06-22] MEDS ORDERED: PERPHENAZINE 4 MG TABLET PO SCH (22:00)
[2019-06-23] MEDS ORDERED: METHADONE HCL 40 MG DISPERSABLE TABLET PO SCH (06:00)
[2019-06-23] MEDS: INSULIN SLIDING SCALE (NOVOLOG) 1 VIAL SQ SCH ×4 (06:37→16:54)
[2019-06-23 08:22] LABS: BLOOD UREA NITROGEN 17.2 mg/dL (7-18); CALCIUM 7.9 mg/dL (8.5-10.1); CREATININE 0.7 mg/dL (0.55-1.3); MAGNESIUM 1.3 mg/dL (1.8-2.4); POTASSIUM 3.8 mmol/L (3.5-5.1)
[2019-06-23] MEDS ORDERED: LORATADINE 10 MG TABLET PO SCH (10:00)
[2019-06-23] MEDS ORDERED: BICTEGRAV/EMTRICIT/TENOFOV (BIKTARVY) 50-200-25 MG TABLET PO SCH (10:00)
[2019-06-23] MEDS ORDERED: MULTIVITAMINS (DAILY MVI) TABLET (FP) PO SCH (10:00)
[2019-06-23] MEDS ORDERED: SERTRALINE HCL 50 MG TABLET (FP) PO SCH (10:00)
[2019-06-23] MEDS ORDERED: amLODIPine BESYLATE 10 MG TABLET (FP) PO SCH (10:00)
[2019-06-23] MEDS ORDERED: ASPIRIN 81 MG CHEWABLE TABLETS PO SCH (10:00)
[2019-06-23] MEDS ORDERED: FUROSEMIDE 40 MG TABLET (FP) PO SCH (10:00)
[2019-06-23] MEDS ORDERED: FOLIC ACID 1 MG TABLET (FP) PO SCH (10:00)
[2019-06-23] MEDS ORDERED: FAMOTIDINE 20 MG TABLET PO SCH (10:00)
[2019-06-23] MEDS ORDERED: THIAMINE HCL 100 MG TABLET (FP) PO SCH (10:00)
[2019-06-23] MEDS ORDERED: ARIPiprazole 15 MG TABLET PO SCH (10:00)
[2019-06-23] MEDS ORDERED: REGADENOSON 0.4 MG/5 ML PRE-FILLED SYRINGE IVPUSH ONE ×2 (10:08→10:15)
[2019-06-23] MEDS ORDERED: MAGNESIUM SULF 50% (8.12 MEQ/2 ML-1 GM VIAL) IVPB ONE (10:48)
[2019-06-23] MEDS ORDERED: PT OWN MED DRAWER 7, Y5N ONE (11:58)
[2019-06-23] MEDS: FLUTICASONE/SALMETEROL 100 MCG/50 MCG DISKUS IH SCH (12:38)
--- NOTE | 2019-06-23 13:48 | PN ---
<Cholo Faust - Last Filed: 06/23/19 14:11> Physical Exam: SUBJECTIVE: Patient seen and examined at bedside. Currently reports significant improvement without any chest pain, shortness of breath, nausea, vomiting, diarrhea, fevers, chills. Just returned from stress test. OBJECTIVE: Vital Signs Period Temp Pulse Resp BP Sys/Forrest Pulse Ox Last 24 Hr 98.1 F-100.1 F 87-100 20-20 119-144/73-99 96-99 GENERAL: A&Ox3, no acute distress EYES: PERRLA, EOMI ENT: Moist mucus membranes NECK: No JVD LUNGS: CTA, no wheezes HEART: RRR, no murmurs ABDOMEN: Soft, nontender, BS present MUSCULOSKELETAL: No CVA Tenderness EXTREMITIES: 2+ pulses, no edema. NEUROLOGICAL: Cranial nerves II-XII intact. Laboratory Results - last 24 hr 06/22/19 06/22/19 06/23/19 17:00 21:12 06:36 Sodium Potassium Chloride Carbon Dioxide Anion Gap BUN Creatinine Est GFR (CKD-EPI)AfAm Est GFR (CKD-EPI)NonAf POC Glucometer 193 138 137 Random Glucose Calcium Magnesium 06/23/19 06/23/19 07:05 12:22 Sodium 141 Potassium 3.8 Chloride 100 Carbon Dioxide 33 H Anion Gap 7 L BUN 17.2 Creatinine 0.7 Est GFR (CKD-EPI)AfAm 108.38 Est GFR (CKD-EPI)NonAf 93.51 POC Glucometer 189 Random Glucose 128 H Calcium 7.9 L Magnesium 1.3 L Active Medications Generic Name Dose Route Start Last Admin Trade Name Freq PRN Reason Stop Dose Admin Albuterol/Ipratropium 1 amp 06/22/19 20:01 Duoneb - NEB Q4H PRN SHORTNESS OF BREATH Amlodipine Besylate 10 mg 06/23/19 10:00 06/23/19 09:05 Norvasc - PO 10 mg DAILY ROSA Administration Aripiprazole 15 mg 06/23/19 10:00 06/23/19 12:31 Abilify PO 15 mg DAILY ROSA Administration Aspirin 81 mg 06/23/19 10:00 06/23/19 12:35 Asa - PO 81 mg DAILY ROSA Administration Bictegravir/Emtricitabine/Tenofovir 1 each 06/23/19 10:00 06/23/19 12:30 Biktarvy 50-200-25 Mg Tablet PO 1 each DAILY ROSA Administration Famotidine 20 mg 06/23/19 10:00 06/23/19 12:34 Pepcid - PO 20 mg DAILY ROSA Administration Folic Acid 1 mg 06/23/19 10:00 06/23/19 12:36 Folic Acid - PO 1 mg DAILY ROSA Administration Furosemide 40 mg 06/23/19 10:00 06/23/19 12:35 Lasix - PO 40 mg DAILY ROSA Administration Insulin Aspart 1 vial 06/22/19 22:00 06/23/19 12:27 Novolog Vial Sliding Scale - SQ 2 unit ACHS ROSA Administration Protocol Loratadine 10 mg 06/23/19 10:00 06/23/19 12:34 Claritin - PO 10 mg DAILY ROSA Administration Methadone HCl 40 mg 06/23/19 06:00 06/23/19 06:37 Dolophine - PO 40 mg DAILY@0600 ROSA Administration Mirtazapine 45 mg 06/22/19 22:00 06/22/19 21:17 Remeron - PO 45 mg HS ROSA Administration Multivitamins/Minerals/Vitamin C 1 tab 06/23/19 10:00 06/23/19 12:33 Tab-A-Vit - PO 1 tab DAILY ROSA Administration Nicotine Polacrilex 2 mg 06/22/19 20:01 Nicorette Gum - BUC Q2H PRN NICOTINE REPLACEMENT RX Perphenazine 4 mg 06/22/19 22:00 06/22/19 21:18 Trilafon PO 4 mg HS ROSA Administration Fluticasone/Salmeterol 1 puff 06/22/19 22:00 06/23/19 12:38 Advair 100mcg/50mcg - IH 1 puff BID ROSA Administration Sertraline HCl 125 mg 06/23/19 10:00 06/23/19 09:05 Zoloft - PO 125 mg DAILY ROSA Administration Thiamine HCl 100 mg 06/23/19 10:00 06/23/19 12:35 Vitamin B1 - PO 100 mg DAILY ROSA Administration Zolpidem Tartrate 10 mg 06/22/19 20:01 06/22/19 21:18 Ambien - PO 10 mg HS PRN Administration INSOMNIA ASSESSMENT/PLAN: 63 year old female with a past medical history of asthma, COPD, Hypertension, HIV, insulin dependent diabetes, congestive heart failure is admitted to the hospital for exacerbation of CHF with ischemic workup #Acute on Chronic Exacerbation of CHF: appears improved, minimal peripheral edema noted with clear lungs, weights have improved to a level which is baseline for patient -continue lasix 40 PO -awaiting results of stress mibi -cardiology consulted -trops normal -Echo EF 50-55% with mild to mod dilated RV with nl RV funciton #Hypertension: well controlled -continue amlodipine #COPD: chronic -contineu advair -duonebs as needed #HIV -continue biktarvy -as patient is at elevated risk for CAD given HIV status, she received stress mibi today -continue ASA #DM: controlled -ISS #Polysubstance Dependence -continue methadone 40 -thiamine, folate #FEN -no standing fluids -lytes normal -restarted diet today #Prophylaxis -lovenox 40 daily #Disposition -DC planning pending results of stress mibi Visit type - Emergency Visit Emergency Visit: No - New Patient This patient is new to me today: Yes Date on this admission: 06/23/19 - Critical Care Critical Care patient: No ATTENDING PHYSICIAN STATEMENT I saw and evaluated the patient. I reviewed the resident's note and discussed the case with the resident. I agree with the resident's findings and plan as documented. SUBJECTIVE: OBJECTIVE: ASSESSMENT AND PLAN: <Meaghan Valdovinos - Last Filed: 06/23/19 14:50> Physical Exam: SUBJECTIVE: Patient seen and examined OBJECTIVE: Vital Signs Period Temp Pulse Resp BP Sys/Forrest Pulse Ox Last 24 Hr 98.1 F-100.1 F 87-101 20-20 119-144/73-99 96-99 GENERAL: The patient is awake, alert, and fully oriented, in no acute distress. HEAD: Normal with no signs of trauma. EYES: PERRL, extraocular movements intact, sclera anicteric, conjunctiva clear. No ptosis. ENT: Ears normal, nares patent, oropharynx clear without exudates, moist mucous membranes. NECK: Trachea midline, full range of motion, supple. LUNGS: Breath sounds equal, clear to auscultation bilaterally, no wheezes, no crackles, no accessory muscle use. HEART: Regular rate and rhythm, S1, S2 without murmur, rub or gallop. ABDOMEN: Soft, nontender, nondistended, normoactive bowel sounds, no guarding, no rebound, no hepatosplenomegaly, no masses. EXTREMITIES: 2+ pulses, warm, well-perfused, no edema. NEUROLOGICAL: Cranial nerves II through XII grossly intact. Normal speech, gait not observed. PSYCH: Normal mood, normal affect. SKIN: Warm, dry, normal turgor, no rashes or lesions noted Laboratory Results - last 24 hr 06/22/19 06/22/19 06/23/19 17:00 21:12 06:36 Sodium Potassium Chloride Carbon Dioxide Anion Gap BUN Creatinine Est GFR (CKD-EPI)AfAm Est GFR (CKD-EPI)NonAf POC Glucometer 193 138 137 Random Glucose Calcium Magnesium 06/23/19 06/23/19 07:05 12:22 Sodium 141 Potassium 3.8 Chloride 100 Carbon Dioxide 33 H Anion Gap 7 L BUN 17.2 Creatinine 0.7 Est GFR (CKD-EPI)AfAm 108.38 Est GFR (CKD-EPI)NonAf 93.51 POC Glucometer 189 Random Glucose 128 H Calcium 7.9 L Magnesium 1.3 L Active Medications Generic Name Dose Route Start Last Admin Trade Name Freq PRN Reason Stop Dose Admin Albuterol/Ipratropium 1 amp 06/22/19 20:01 Duoneb - NEB Q4H PRN SHORTNESS OF BREATH Amlodipine Besylate 10 mg 06/23/19 10:00 06/23/19 09:05 Norvasc - PO 10 mg DAILY ROSA Administration Aripiprazole 15 mg 06/23/19 10:00 06/23/19 12:31 Abilify PO 15 mg DAILY ROSA Administration Aspirin 81 mg 06/23/19 10:00 06/23/19 12:35 Asa - PO 81 mg DAILY ROSA Administration Bictegravir/Emtricitabine/Tenofovir 1 each 06/23/19 10:00 06/23/19 12:30 Biktarvy 50-200-25 Mg Tablet PO 1 each DAILY ROSA Administration Enoxaparin Sodium 40 mg 06/23/19 14:15 Lovenox - SQ DAILY ROSA Famotidine 20 mg 06/23/19 10:00 06/23/19 12:34 Pepcid - PO 20 mg DAILY ROSA Administration Folic Acid 1 mg 06/23/19 10:00 06/23/19 12:36 Folic Acid - PO 1 mg DAILY ROSA Administration Furosemide 40 mg 06/23/19 10:00 06/23/19 12:35 Lasix - PO 40 mg DAILY ROSA Administration Insulin Aspart 1 vial 06/22/19 22:00 06/23/19 12:27 Novolog Vial Sliding Scale - SQ 2 unit ACHS ROSA Administration Protocol Loratadine 10 mg 06/23/19 10:00 06/23/19 12:34 Claritin - PO 10 mg DAILY ROSA Administration Methadone HCl 40 mg 06/23/19 06:00 06/23/19 06:37 Dolophine - PO 40 mg DAILY@0600 ROSA Administration Mirtazapine 45 mg 06/22/19 22:00 06/22/19 21:17 Remeron - PO 45 mg HS ROSA Administration Multivitamins/Minerals/Vitamin C 1 tab 06/23/19 10:00 06/23/19 12:33 Tab-A-Vit - PO 1 tab DAILY ROSA Administration Nicotine Polacrilex 2 mg 06/22/19 20:01 Nicorette Gum - BUC Q2H PRN NICOTINE REPLACEMENT RX Perphenazine 4 mg 06/22/19 22:00 06/22/19 21:18 Trilafon PO 4 mg HS ROSA Administration Fluticasone/Salmeterol 1 puff 06/22/19 22:00 06/23/19 12:38 Advair 100mcg/50mcg - IH 1 puff BID ROSA Administration Sertraline HCl 125 mg 06/23/19 10:00 06/23/19 09:05 Zoloft - PO 125 mg DAILY ROSA Administration Thiamine HCl 100 mg 06/23/19 10:00 06/23/19 12:35 Vitamin B1 - PO 100 mg DAILY ROSA Administration Zolpidem Tartrate 10 mg 06/22/19 20:01 06/22/19 21:18 Ambien - PO 10 mg HS PRN Administration INSOMNIA ASSESSMENT/PLAN: ATTENDING PHYSICIAN STATEMENT I saw and evaluated the patient. I reviewed the resident's note and discussed the case with the resident. I agree with the resident's findings and plan as documented. SUBJECTIVE: Patient seen and examined by bedside. States her sob has improved OBJECTIVE: GENERAL: alert and oriented in no acute distress CVS: S1 S2 RRR +systolic murmur Lungs: clear to auscultation b/l no wheezing or crackles ABDOMEN: Soft, nontender, +BS EXTREMITIES: no cyanosis or edema ASSESSMENT AND PLAN: 3 year old woman with a history of asthma/COPD, type 2 DM, HIV, anxiety/depression, alcohol abuse, opioid abuse, LESLY who presented to the ED with right neck and right foot pain, SOB and hypoxia by EMS # SOB 2/2 Acute on chronic diastolic CHF exacerbation - trops x 2 - CT chest negative for PE - c/w po lasix - Echo showed LVEF 50-55%, mild to moderately dilated RV, mildly dilated LA, mildly dilated RA, mild MR, mild to moderate TR, RVSP 30-40 mmHg, mildly dilated IVC - awaiting stress test results done today and d/c today if stress test negative # DMII - ISS # c/w rest of chronic home meds # dvt ppx: enoxaparin subq
[2019-06-23] MEDS ORDERED: ENOXAPARIN NA (PORCINE) 40 MG/0.4 ML DISP.SYRIN SQ SCH (14:15)
[2019-06-23 14:44] VITALS: BP 131/82; PULSE 101; TEMP 98.2
--- NOTE | 2019-06-23 15:06 | PN ---
Progress Note (short form) - Note Progress Note: s no chest pain, palps, dizziness, dyspnea Current Medications Albuterol/Ipratropium (Duoneb -) 1 amp NEB Q4H PRN PRN Reason: SHORTNESS OF BREATH Amlodipine Besylate (Norvasc -) 10 mg PO DAILY [facility] Last Admin: 06/23/19 09:05 Dose: 10 mg Documented by: Aripiprazole (Abilify) 15 mg PO DAILY [facility] Last Admin: 06/23/19 12:31 Dose: 15 mg Documented by: Aspirin (Asa -) 81 mg PO DAILY [facility] Last Admin: 06/23/19 12:35 Dose: 81 mg Documented by: Bictegravir/Emtricitabine/Tenofovir (Biktarvy 50-200-25 Mg Tablet) 1 each PO DAILY [facility] Last Admin: 06/23/19 12:30 Dose: 1 each Documented by: Enoxaparin Sodium (Lovenox -) 40 mg SQ DAILY [facility] Famotidine (Pepcid -) 20 mg PO DAILY [facility] Last Admin: 06/23/19 12:34 Dose: 20 mg Documented by: Folic Acid (Folic Acid -) 1 mg PO DAILY [facility] Last Admin: 06/23/19 12:36 Dose: 1 mg Documented by: Furosemide (Lasix -) 40 mg PO DAILY [facility] Last Admin: 06/23/19 12:35 Dose: 40 mg Documented by: Insulin Aspart (Novolog Vial Sliding Scale -) 1 vial SQ [facility]; Protocol Last Admin: 06/23/19 12:27 Dose: 2 unit Documented by: Loratadine (Claritin -) 10 mg PO DAILY [facility] Last Admin: 06/23/19 12:34 Dose: 10 mg Documented by: Methadone HCl (Dolophine -) 40 mg PO DAILY@0600 [facility] Last Admin: 06/23/19 06:37 Dose: 40 mg Documented by: Mirtazapine (Remeron -) 45 mg PO HS [facility] Last Admin: 06/22/19 21:17 Dose: 45 mg Documented by: Multivitamins/Minerals/Vitamin C (Tab-A-Vit -) 1 tab PO DAILY [facility] Last Admin: 06/23/19 12:33 Dose: 1 tab Documented by: Nicotine Polacrilex (Nicorette Gum -) 2 mg BUC Q2H PRN PRN Reason: NICOTINE REPLACEMENT RX Perphenazine (Trilafon) 4 mg PO HS [facility] Last Admin: 06/22/19 21:18 Dose: 4 mg Documented by: Fluticasone/Salmeterol (Advair 100mcg/50mcg -) 1 puff IH BID [facility] Last Admin: 06/23/19 12:38 Dose: 1 puff Documented by: Sertraline HCl (Zoloft -) 125 mg PO DAILY [facility] Last Admin: 06/23/19 09:05 Dose: 125 mg Documented by: Thiamine HCl (Vitamin B1 -) 100 mg PO DAILY [facility] Last Admin: 06/23/19 12:35 Dose: 100 mg Documented by: Zolpidem Tartrate (Ambien -) 10 mg PO HS PRN PRN Reason: INSOMNIA Last Admin: 06/22/19 21:18 Dose: 10 mg Documented by: Vital Signs Period Temp Pulse Resp BP Sys/Forrest Pulse Ox Last 24 Hr 98.1 F-100.1 F 87-101 20-20 119-144/73-99 96-99 Constitutional: Yes: No Distress, Calm Eyes: Yes: Conjunctiva Clear Neck: Yes: Trachea Midline Respiratory: Yes: Other (decreased breath sounds bilaterally, no active wheezing) Gastrointestinal: Yes: Soft JVD: No Carotid Bruit: No Heart Sounds: Yes: S1, S2 Murmur: Yes: Systolic Murmur Edema: no Neurological: Yes: Alert, Oriented no jaundice, diaphoresis not agitated Imaging - Results Chest X-ray: Image Reviewed (increased PVC (my read)) EKG: Image Reviewed (NSR 97bpm, no acute ST changes)) echo 06/2019 EF 50-55%, RV mild to moderately dilated, nl RV function, mild biatrial enlargement, RVSP 30-40 mmHg, mildly dilated IVC tele: sinus, artifact Assessment/Plan IMP: Mild acute CHF (systolic vs diastolic) DM Smoker ETOH abuse HIV REC: 1. acute diastolic CHF -Serial enzymes -Echo EF 50-55% with mild to mod dilated RV with nl RV funciton - no PE on CTA - improved with Lasix 40mg IV daily - appears euvolemic and feels at baseline, change to PO lasix - mibi results pending, if benign findings no further cardiac testing as inpatient 2. DM: -As per PMD 3. Smoker: -Complete cessation advised 4. Etoh abuse: -would offer rehab 5. HIV: -Places her at increased risk of CAD and cardiomyopathy -Meds as per PMD 1
--- NOTE | 2019-06-23 15:43 | DS ---
Physical Exam: *Progress note written today* See note HOSPITAL COURSE: Date of Admission:06/19/19 63 year old female with a past medical history of asthma, COPD, Hypertension, HIV, insulin dependent diabetes, congestive heart failure is admitted to the hospital for exacerbation of CHF with ischemic workup. Treated effectively with IV lasix and transitioned to PO lasix. Echo showed EF 50-55% with mild to mod dilated RV with nl RV function. Found to have low magnesium. Repleted with 2gm IV. Stress mibi performed for ischemic workup as patient is HIV+, returned normal. She was discharged home on PO lasix and PO magnesium with followup to cardiology and PCP. Date of Discharge: 06/23/19 Minutes to complete discharge: 35 Discharge Summary Problems reviewed: Yes Reason For Visit: HEART FAILURE Current Active Problems Acute CHF (Acute) Acute respiratory failure with hypoxia and hypercapnia (Acute) HIV (human immunodeficiency virus infection) (Acute) Heart failure (Acute) Tobacco abuse (Acute) Tobacco abuse counseling (Acute) Condition: Improved - Instructions Diet, Activity, Other Instructions: You were admitted to the hospital for the treatment of acute exacerbation of heart failure Your magnesium level was found to be low Medical Recommendations: -Continue taking lasix (furosemide) 40mg by mouth once daily -Please take magnesium 400mg twice per day for 5-7 days, have your primary care physician recheck your magnesium level after 1 week -Please make an appointment with the manager social media, Dr. Vazquez, within 1 month of discharge -Please make an appointment with your primary care physician within 1 week of discharge If you experience chest pain, shortness of breath, nausea, vomiting, diarrhea, fevers, chills, please come back to the emergency room immediately. Referrals: Jackie Lynch NP [Primary Care Provider] - 1 Week Jelly Vazquez MD [Staff Physician] - 1 Month Disposition: HOME - Home Medications Comprehensive Discharge Medication List: Ambulatory Orders Albuterol Sulfate Inhaler - [Ventolin HFA Inhaler -] 1 - 2 inh PO Q6H PRN #1 inh 01/24/19 Aspirin [Aspirin EC] 81 mg PO DAILY #30 tablet. 01/24/19 Atorvastatin Ca [Lipitor] 10 mg PO HS #30 tablet 01/24/19 Fluticasone/Salmeterol [Advair 250-50 Diskus] 1 each IH BID #1 disk.w.dev 01/24/19 Loratadine 10 mg PO DAILY #30 tablet 01/24/19 Multivitamin [Poly-Vitamin] 1 each PO DAILY #30 tab.chew 01/24/19 Sodium Chloride [Saline Nasal [place]] 1 - 2 sprays NS PRN #1 spray 01/24/19 Vitamin B Complex [B Complex] 1 each PO DAILY #30 tablet 01/24/19 metFORMIN HCL [Glucophage -] 500 mg PO BID #60 tablet 01/24/19 Terbinafine HCl [Lamisil At] 1 applic TP BID #30 cream..g. 01/29/19 Blood Pressure Kit-Extra Large [Blood Pressure Monitor] 1 each ASDIR #1 kit 03/19/19 Nebulizer [Compact Compressor Nebulizer] 1 each ASDIR #1 kit 03/19/19 Amlodipine Besylate [Norvasc -] 1 tab PO DAILY #30 tablet 05/01/19 Aripiprazole 15 mg PO AM #30 tablet 05/07/19 Benztropine Mesylate [Cogentin -] 1 mg PO DAILY #30 tablet 05/07/19 Hydrochlorothiazide [Hctz -] 12.5 mg PO DAILY #30 cap 05/07/19 Mirtazapine 1 tablet PO HS 30 Days #30 tablet 05/07/19 Mirtazapine [Remeron -] 15 mg PO HS #30 tablet 05/07/19 Nicotine Polacrilex [Nicotine Gum] 2 mg ASDIR #1 box 05/07/19 Perphenazine [Trilafon -] 4 mg PO HS #30 tablet 05/07/19 Sertraline HCl 25 mg PO AM #30 tablet 05/07/19 Sertraline HCl 100 mg PO AM #30 tablet 05/07/19 Albuterol 0.083% Nebulizer Mary [Ventolin 0.083% Nebulizer Soln -] 1 neb NEB Q6H PRN #120 vial 05/27/19 Bictegrav/Emtricit/Tenofov Ala [Biktarvy 50-200-25 mg Tablet] 1 each PO DAILY #30 tablet 05/27/19 Famotidine [Pepcid -] 20 mg PO DAILY PRN #30 tablet 05/27/19 Valacyclovir HCl [Valtrex -] 500 mg PO DAILY #30 tablet 05/27/19 Zolpidem Tartrate [Ambien] 10 mg PO HS #15 tablet MDD 1 06/05/19 Magnesium Oxide [Mag-Ox -] 400 mg PO BID #14 tablet 06/23/19 This patient is new to me today: No Emergency Visit: No Critical Care patient: No - Discharge Referral Referred to [facility] Med [facility] No ATTENDING PHYSICIAN STATEMENT I saw and evaluated the patient. I reviewed the resident's note and discussed the case with the resident. I agree with the resident's findings and plan as documented. SUBJECTIVE: OBJECTIVE: ASSESSMENT AND PLAN:
--- NOTE | 2019-06-24 07:48 | ECHO ---
Name: DREW QUINTEROS Exam:Adult Echocardiogram Study Date: 06/20/2019 10:41 AM Age: 63 yrs Height: 62 in Weight: 185 lb BSA: 1.8 m2 MMode/2D Measurements & Calculations RVDd: 4.1 cm Ao root diam: 2.8 cm IVSd: 0.90 cm LA dimension: 3.9 cm LVIDd: 4.8 cm ACS: 1.8 cm LVIDs: 3.1 cm LVPWd: 1.00 cm IVSs: 1.6 cm EDV(Teich): 108.5 ml LVOT diam: 2.0 cm ESV(Teich): 38.6 ml LAV (MOD-bp): 52.0 ml TAPSE: 2.3 cm Doppler Measurements & Calculations MV E max kennedy: 110.8 cm/sec Ao V2 max: 161.5 cm/sec MV A max kennedy: 104.2 cm/sec Ao max P.4 mmHg MV E/A: 1.1 Ao V2 mean: 113.3 cm/sec MV dec time: 0.17 sec Ao mean P.7 mmHg Ao V2 VTI: 33.9 cm JOCELYN(I,D): 2.1 cm2 LV V1 mean P.0 mmHg SV(LVOT): 70.8 ml LV V1 mean: 80.7 cm/sec LV V1 VTI: 23.3 cm TR max kennedy: 265.1 cm/sec PA V2 max: 124.9 cm/sec TR max P.4 mmHg PA max P.2 mmHg PA acc slope: 1096 cm/sec2 PA acc time: 0.10 sec PA pr(Accel): 33.1 mmHg Pulm Sys Kennedy: 69.1 cm/sec Pulm Forrest Kennedy: 55.8 cm/sec Pulm S/D: 1.2 Left Ventricle Ejection Fraction = 50-55%. Septal motion is consistent with conduction abnormality. Right Ventricle The right ventricle is mild to moderately dilated. The right ventricular systolic function is grossly normal. Atria The left atrium is mildly dilated. The right atrium is mildly dilated. Mitral Valve The mitral valve is normal in structure and function. There is no mitral valve stenosis. There is mil d mitral regurgitation. Tricuspid Valve The tricuspid valve is normal in structure and function. There is mild to moderate tricuspid regurgit ation. Right ventricular systolic pressure is elevated at 30-40mmHg. Aortic Valve The aortic valve opens well. No hemodynamically significant valvular aortic stenosis. No aortic regur gitation is present. Pulmonic Valve The pulmonic valve is not well seen, but is grossly normal. There is no pulmonic valvular stenosis. Great Vessels The aortic root is normal size. Mildly dilated inferior vena cava. Pericardium/Pleura There is no pericardial effusion. Interpretation Summary Ejection Fraction = 50-55%. The right ventricle is mild to moderately dilated. The left atrium is mildly dilated. The right atrium is mildly dilated. There is mild mitral regurgitation. There is mild to moderate tricuspid regurgitation. Right ventricular systolic pressure is elevated at 30-40mmHg. Mildly dilated inferior vena cava There is no pericardial effusion. MD Francis *Mara 06/20/2019 01:31 PM
[2019-06-24] MEDS ORDERED: MAGNESIUM OXIDE 400 MG TABLET (FP) PO SCH (10:00)
== END 2019-06-23 18:43 | disposition home or self-care (01) | DRG 133 ==
LOC: JER 12:55 → JERBED 15:07 → J4W 20:40 → J5S 06-22 20:07
PROVIDERS: ATTEND Internal Medicine
DX: J96.01 Acute respiratory failure with hypoxia (principal); Z21 Asymptomatic human immunodeficiency virus [HIV] infection status; F17.210 Nicotine dependence, cigarettes, uncomplicated; E11.9 Type 2 diabetes mellitus without complications; J98.11 Atelectasis; E87.6 Hypokalemia; J45.909 Unspecified asthma, uncomplicated; E66.9 Obesity, unspecified; F10.20 Alcohol dependence, uncomplicated; I11.0 Hypertensive heart disease with heart failure; I50.33 Acute on chronic diastolic (congestive) heart failure; J44.9 Chronic obstructive pulmonary disease, unspecified; F11.20 Opioid dependence, uncomplicated; E87.2 Acidosis; E83.42 Hypomagnesemia; F41.8 Other specified anxiety disorders; Z68.32 Body mass index [BMI] 32.0-32.9, adult; G47.33 Obstructive sleep apnea (adult) (pediatric)
CPT/HCPCS: 36415; 71045-TC-FY; 71275-TC; 78452-TC; 80048; 80053; 81003; 82550; 82553; 82803; 82962; 83605; 83615; 83735; 83880; 84484; 85025; 85610; 85730; 86359; 86360; 87040; 87077; 87086; 87186; 93005; 93010; 93017; 93306-TC; 93880-TC; 93970-TC; 94660; 94761; 99285-25; A9502; J0131; J2785; Q9967

== ENCOUNTER 2021-10-10 15:13 | Emergency (ER) | payer OTHER ==
[2021-10-10 15:29] VITALS: BP 123/77; PULSE 97; TEMP 98.6; BMI 32.9
[2021-10-10] MEDS ORDERED: ONDANSETRON 4 MG/2 ML VIAL IVPUSH ONE (16:51)
[2021-10-10] MEDS ORDERED: ACETAMINOPHEN 1000 MG/100 ML BAG IVPB ONE (16:51)
[2021-10-10] MEDS ORDERED: SODIUM CHLORIDE 0.9% 1000 ML INFUS.BAG IV ONE (16:51)
[2021-10-10 17:37] LABS: HEMATOCRIT 37.2 % (32.4-45.2); HEMOGLOBIN 11.9 GM/dL (10.7-15.3); MCH 27.2 pg (25.7-33.7); MEAN CELL VOLUME 85.2 fl (80-96); PLATELET COUNT 115 10^3/uL (134-434); RBC 4.37 M/mm3 (3.60-5.2); RDW 14.2 % (11.6-15.6); WHITE BLOOD COUNT 12.6 K/mm3 (4.0-10.0)
[2021-10-10 17:55] LABS: ALBUMIN 3.6 g/dl (3.4-5.0); CALCIUM 9.6 mg/dL (8.5-10.1)
[2021-10-10 17:56] LABS: BLOOD UREA NITROGEN 14.6 mg/dL (7-18)
[2021-10-10 17:58] LABS: CREATININE 0.8 mg/dL (0.55-1.3)
[2021-10-10 18:00] LABS: BILIRUBIN,TOTAL 0.4 mg/dL (0.2-1); TOT PROT 8.4 g/dl (6.4-8.2)
== END 2021-10-10 19:27 | disposition home or self-care (01) ==
LOC: JER 15:13
DX: R10.84 Generalized abdominal pain (principal)
CPT/HCPCS: 0241U-QW; 36415; 80053; 83690; 84484; 85027; 93005; 93010; 99284-25